=== PATIENT | female | born 1930 | race Caucasian/White ===

== ENCOUNTER → 2016-05-03 | Outpatient (CLI) | payer MEDICARE, OTHER ==
--- NOTE | 2016-05-03 09:22 | ST Modified Barium Swallow ---
Recommendation - Recommendations Recommendations: 1) DIET: Recommend mechanical soft cut meats and thin liquids- No straws. During swallows of thin by straw deep penetration to the level of the vocal cords. 2) Aspiration precautions-fully upright during meals, slow rate of intake. 3) STRATEGIES- alternate bites and sips to clear residuals of solids, dry swallow after sips of thin to clear residuals of thin liquids. 4) Pills whole or crushed as able in puree. 5) Recommend home health speech therapy for dysphagia. SUMMARY: Pt presents with a mild-moderate oral and pharyngeal phase dysphagia characterized by reduced bolus propulsion from oral cavity to pharyngeal phase of swallow, significant reduces epiglottic inversion , reduced laryngeal elevation, reduced hyolaryngeal approximation, reduced pharyngeal peristalsis resulting in residuals of thin and solids in valleculae and pyriforms. Pt observed to have deep penetration on thin liquids by straw. No penetration or aspiration on thin by spoon or small sips by cup. Aspiration observed x1 on sequential swallows of thin when pt attempting to swallow pill. Pt unable to swallow pill with thin liquids-pt able to swallow pill in puree. Cough observed on aspiration event. Residuals of solids observed to clear with liquid wash. Residuals of thin observed to clear with dry swallow. Osteophyte observed at approximately C4, possibly effecting pharyngeal peristalsis and epiglottic inversion. Medical Diagnoses - Medical Diagnoses Medical Diagnosis Description & ICD-10 Code(s): G20 Parkinson's disease, other dysphagia r13.19 Other Medical Diagnoses/Co-Morbidities: Parkinson's disease, spinal stenosis, bronchitis, COPD, reflux - ICD-10 Tx Diagnosis Coding (1) Dysphagia, oropharyngeal phase ICD-10 Code(s): R13.12 - DYSPHAGIA, OROPHARYNGEAL PHASE (2) Dysphagia, pharyngeal phase ICD-10 Code(s): R13.13 - DYSPHAGIA, PHARYNGEAL PHASE ST Modified Barium Swallow - General Date: 05/03/16 Referring Physician: Dr Aurora Paige Risks/Precautions: Falls - walker, Aspiration Date of Onset: 05/03/15 Reason for Referral: dysphagia, Parkinson's disease - History History obtained from: Patient, Family - daughter -: Medical - Pt reports food and liquids "go down the wrong way". Daughter reports 3 "choking events" in the past year as well as coughing during meals and with pills. Pt reports symptoms started approximately 1 year ago and endorses globus sensation in anterior neck region. Reports recent bronchitis about 1 month ago, states has chronic bronchitis. Pt has diagnosis of Parkinson' s disease approximately 1 year ago, daughter states they have an appointment with neurology next week for "second opinion". PMHx: Parkinson's disease, hip fracture, bronchitis, COPD, reflux, spinal stenosis. Pt also reports after her fall a couple months ago she has pain when opening her mouth and reports limited jaw ROM. Pt states hit right side of face during fall-however has left sided jaw pain. Daughter unsure if imaging of head taken after fall. Medications: prilosec, azilect, evista, cerefolin, biotin, omega 3, citrical, centrum silver, colace, advair, rescue inhaler. Allergies: simvastatin - Functional Status Prior Functional Status: INDEPENDENT: feeding Current Functional Limitations: feeding - Subjective Patient/caregiver goal(s): safe swallow, r/o aspiration Cognitive-Linguistic Function: WNL Speech Intelligibility: Mildly dysarthric - low volume Current Nutritional Means: PO Current PO diet: Regular Current symptoms: Coughing, c/o Globus sensation Pain: 0/5 - Objective Assessment: Upright, Left Lateral - Food Trials Used Food trials used: Thin liquids, Pureed, Soft solids The patient: Was Able to Self Feed - Oral-Motor Skills Dentition: Partial - upper and lower Velo-pharyngeal function: Unremarkable Laryngeal Function: Volitional Swallow, Weak Cough, weak voicing - Assessment Oral prep: Mildly Impaired - reduced bolus propulsion Labial closure: Adequate Leakage: None Mastication: Adequate Oral stage: Mildly Impaired, Impaired Bolus Propulsion - Pharyngeal Stage Initiation of Pharyngeal Stage Reflex: Normal Decreased laryngeal elevation: Yes - moderate Reduced Velopharyngeal Closure: no Reduced pressure generation: Yes - mild reduced tongue-based retraction: Yes - mod-significant Pre-swallow pooling in valleculae: None Pre-Swallow pooling in pyriforms: None Reduced Thyro-Hyoid approximation: Yes - moderate Reduced epiglottic excursion: Yes - significant Reduced pharyngeal peristalsis/contraction: Yes - moderate Post-swallow residulas vallecular: Moderate - mild-moderate on puree, mild on soft solids, mild on thin liquids Post-Swallow residuals in pyriforms: Mild - trace on thin and puree - Fall Risk Assessment Medications/Conditions that increase fall risks include: Antidepressants, sedatives, anti-arrhythmic, diuretic, benzodiazipenes, neuroleptics. BP regulation problems, cardiac problems, balance or gait deficits, neurological problems. Is patient considered at risk for falls: yes Fall Risk Actions Taken: Pt physician notified - Behavioral Observations During evaluation process patient: was pleasant, was cooperative, able to answer questions, provided medical history - Treatment / Educational Needs: Treatment/Education Needs: Treatment consisted of patient education on the role of the Speech Pathologist. Patient's plan of care and golas were communicated as well as scheduling and attendance policies. Recommendations for initial home program were shared. Patient demonstrated understanding and verbalized agreement. Initial home program recommendations: Pt and pt's daughter provided with verbal and written education on dysphagia, aspiration PNA, reflux precautions, mechanical soft solids guidlines, and recommendations from MBSS. - Impression/Summary Laryngeal Penetration: Yes, Deep, Silent, during swallow Consistency: Thin Tracheal Aspiration: yes - on thin x1-on sequential cups sips during pt attempting to swallow pill (pt unable to move pill posteriorly in oral cavity- pill not swallowed). Cough observed with aspiration event. Pill then provided in puree-pt able to swallow pill without difficulty., deep, cough, during swallow Patient presents with: Oral stage dysphagia, Pharyngeal stage dysph., Oral- Pharyngeal dysph. Risk of Aspiration: Moderate - mild-moderate - Recommendations NPO: no Solid diet recommendations: Mechanical Soft, Chopped Meat Liquid Diet Modification: Thin Strict aspiration precautions: Yes - straws Pt/Family education and followup with MD: Yes Dysphagia therapy with PRESSURE STEAMER TENDER: yes, dysphagia therapy - Home health Reflux Precautions: Taught to Patient, Taught to Family Recommended techniques: Fully Upright During Meal, Alternate Bites/Sips - and dry swallow after thin liquids Supervision: Distant Information, Precautions and Recommendations: Patient (Written), Patient (Verbal ), Family Member (Written), Family Member (Verbal) - Time Total Time: 35 - Plan of Care Strategies to optimize patient understanding include:: ongoing assessment of educational needs, implementation of educational strategies, and re-education. - - -: Thank you for the opportunity to work with this patient and his/her family. Should you have any questions about this patient's plan or progress, I can be reached at [phone]. Charge G Code? - - -: Yes ST F.L. Impairment Category - Rationale Based On Rationale Based On: Clin Find., Obj Measures - Swallowing Current G8996: CJ 20-39% Impaired Goal G8997: CJ 20-39% Impaired Discharge G8998: CJ 20-39% Impaired
== END ==
LOC: RAD 07:45
PROVIDERS: ATTEND Psychiatry & Neurology Neuromuscular Medicine
DX: G20 Parkinson's disease (principal); R13.19 Other dysphagia
CPT/HCPCS: 74230; 92611; G8996; G8997; G8998

== ENCOUNTER → 2016-07-09 | Outpatient (CLI) | payer MEDICARE, OTHER | LOC: RAD 11:03 | PROVIDERS: ATTEND Psychiatry & Neurology Neurology | DX: G20 Parkinson's disease (principal) | CPT/HCPCS: 70551 ==

== ENCOUNTER 2016-07-16 02:33 | Emergency (ER) | payer MEDICARE, OTHER ==
--- NOTE | 2016-07-16 02:55 | ER Document Report ---
ED General - General Chief Complaint: Fall Stated Complaint: FALL/BODY PAIN Time seen by provider: 02:45 Notes: Patient is an 85-year-old female that comes emergency department for chief complaint of fall, she states that she got out of bed and lost her balance, falling onto her left side on the floor, she denies hitting her head, denies dizziness, denies passing out. She takes a baby aspirin daily, denies blood thinners. She states that for the past month she has felt generally weaker than usual, she denies fever she denies change in eating/drinking. She denies focal numbness or weakness. Past medical history of Parkinson's, hyperlipidemia , hypertension, GERD. She lives at home with her daughter. TRAVEL OUTSIDE OF THE [place] IN LAST 30 DAYS: No - Related Data Allergies/Adverse Reactions: simvastatin Allergy (Verified 10/14/15 16:49) Past Medical History - General Information source: Patient, Emergency Med Personnel - Social History Smoking Status: Never Smoker Frequency of alcohol use: None Drug Abuse: None Lives with: Family Family History: Reviewed & Not Pertinent - Past Medical History Cardiac Medical History: Reports: Hx Hypertension Pulmonary Medical History: Reports: Hx COPD Endocrine Medical History: Reports: Hx Diabetes Mellitus Type 2 GI Medical History: Reports: Hx Gastroesophageal Reflux Disease Psychiatric Medical History: Denies: Hx Depression Infectious Medical History: Reports: Hx C-Diff Past Surgical History: Reports: Hx Appendectomy, Hx Cardiac Surgery, Hx Cholecystectomy Review of Systems - Review of Systems Constitutional: No symptoms reported EENT: No symptoms reported Cardiovascular: No symptoms reported Respiratory: No symptoms reported Gastrointestinal: No symptoms reported Genitourinary: No symptoms reported Female Genitourinary: No symptoms reported Musculoskeletal: See HPI Skin: No symptoms reported Hematologic/Lymphatic: No symptoms reported Neurological/Psychological: See HPI Physical Exam - Vital signs Vitals: Resp Pulse Ox 21 H 96 07/16/16 04:50 07/16/16 04:50 Interpretation: Normal - General General appearance: Appears well, Alert In distress: None - Alert, smiling, well-appearing - HEENT Head: Normocephalic - No evidence of head injury on examination, Atraumatic Eyes: Normal Conjunctiva: Normal Extraocular movements intact: Yes Eyelashes: Normal Pupils: PERRL Sinus: Normal Nasal: Normal Mouth/Lips: Normal Mucous membranes: Normal Pharynx: Normal Neck: Normal - Respiratory Respiratory status: No respiratory distress. No: Labored, Tachypnea Chest status: Tender - There is very slight tenderness over the mid left inferior ribs in the midaxillary line, no ecchymosis, swelling, abnormal coloration, or other abnormality noted Breath sounds: Normal. No: Decreased air movement Chest palpation: Normal - Cardiovascular Rhythm: Regular. No: Tachycardia Heart sounds: Normal auscultation, S1 appreciated, S2 appreciated Murmur: No - Abdominal Inspection: Normal Distension: No distension Bowel sounds: Normal Tenderness: Nontender. No: Tender Organomegaly: No organomegaly - Back Back: Normal, Nontender. No: Vertebra tenderness - Normal spinal exam throughout, normal upper and lower extremity range of motion, normal distal neurovascular exam, no saddle anesthesia - Extremities General upper extremity: Other - Very mild tenderness over the proximal left humeral head and general left shoulder area General lower extremity: Other - Very slight proximal left thigh tenderness, no specific tenderness in the hip joint - Neurological Neuro grossly intact: Yes Cognition: Normal Orientation: AAOx4 Girma Coma Scale Eye Opening: Spontaneous Girma Coma Scale Verbal: Oriented Girma Coma Scale Motor: Obeys Commands Girma Coma Scale Total: 15 Speech: Normal Motor strength normal: LUE, RUE, LLE, RLE Sensory: Normal - Psychological Associated symptoms: Normal affect, Normal mood - Skin Skin Temperature: Warm Skin Moisture: Dry Skin Color: Normal Course - Re-evaluation Re-evalutation: Patient is actually not complaining of any symptoms, she is here by herself, she is alert, she is conversational, is oriented, she is well-appearing. Patient has mild tenderness with palpation over the shoulder, left lower ribs, question will tenderness over the left thigh, no signs of injury including swelling or ecchymosis. Normal back exam, normal neurologic exam, no evidence of injury over the head, patient denies head injury. 07/16/16 CBC, chemistry, EKG, cardiac enzymes unremarkable. Imaging unremarkable with no fractures. On reexamination patient insisting she has no symptoms or complaints, she states she doesn't know why she came. Urinalysis shows nitrates , white blood cells, bacteria. Urine culture place. Patient given a dose of antibiotics. No leukocytosis, fever, tachycardia, hypotension. Patient requesting to leave. Patient is very alert and appears very reliable, I discussed all return precautions, patient states she has a close follow-up already scheduled with her primary care within the next few days, patient states she'll return for any concerning symptoms and that she is staying with her daughter. Patient calling daughter to be picked up. - Vital Signs Vital signs: Temp Pulse Resp BP Pulse Ox 22 H 174/66 H 95 07/16/16 05:02 07/16/16 05:02 07/16/16 05:02 - Laboratory Result Diagrams: 07/16/16 03:28 07/16/16 03:28 Laboratory results interpreted by me: 07/16/16 07/16/16 07/16/16 03:28 03:28 03:28 RDW 14.4 H Sodium 146.6 H Creatine Kinase 22 L Urine Nitrite POSITIVE H Ur Leukocyte Esterase MODERATE H Discharge - Discharge Clinical Impression: Weakness Fall Qualifiers: Encounter type: initial encounter Qualified Code(s): W19.XXXA - Unspecified fall, initial encounter Urinary tract infection Qualifiers: Urinary tract infection type: site unspecified Hematuria presence: without hematuria Qualified Code(s): N39.0 - Urinary tract infection, site not specified Condition: Stable Disposition: HOME, SELF-CARE Additional Instructions: Imaging shows no fractures, dislocations, or other new abnormalities. Workup is good except for urine showing urinary tract infection. You have been given an initial dose of antibiotics, please take the antibiotics as prescribed to completion, we have a urine culture growing in our laboratory. Follow up with your primary care provider this week. Return immediately for any concerning or worsening symptoms including fever, abdominal pain, vomiting, altered mental status, or any other concerning symptoms. Prescriptions: Cephalexin Monohydrate [Keflex 500 mg Capsule] 500 mg PO BID #14 capsule Referrals: ERIKA DUMONT MD [Primary Care Provider] - Follow up as needed
[2016-07-16 04:05] LABS: APPEARANCE,URINE SLIGHTLY-CLOUDY; BILIRUBIN,URINE NEGATIVE (NEGATIVE); GLUCOSE, URINE NEGATIVE (NEGATIVE); KETONES,URINE NEGATIVE (NEGATIVE); LEUKOCYTE ESTERASE,URINE MODERATE (NEGATIVE); NITRITE,URINE POSITIVE (NEGATIVE); PROTEIN,URINE NEGATIVE (NEGATIVE); URINE SPECIFIC GRAVITY 1.002; UROBILINOGEN,URINE NEGATIVE mg/dL (<2.0)
[2016-07-16 04:07] LABS: ABSOLUTE EOSINOPHILS # (AUTO) 0.2 10^3/uL (0.0-0.6); ABSOLUTE LYMPHOCYTES (AUTO) 2.1 10^3/uL (0.5-4.7); ABSOLUTE MONOCYTES (AUTO) 0.5 10^3/uL (0.1-1.4); ABSOLUTE NEUT (AUTO) 3.6 10^3/uL (1.7-8.2); BASOPHILS % (AUTO) 0.2 % (0-2); EOSINOPHILS % (AUTO) 2.8 % (0-6); HEMATOCRIT 39.6 % (36.0-47.0); HEMOGLOBIN 13.1 g/dL (12.0-15.5); HGB HCT DIFFERENCE -0.3; LYMPHOCYTES % (AUTO) 33.1 % (13-45); MEAN CORPUSCULAR HEMOGLOBIN 29.8 pg (27.0-33.4); MEAN CORPUSCULAR HGB CONC 33.1 g/dL (32.0-36.0); MEAN CORPUSCULAR VOLUME 90 fl (80-97); MONOCYTES % (AUTO) 7.8 % (3-13); RED BLOOD COUNT 4.39 10^6/uL (3.72-5.28); RED CELL DISTRIBUTION WIDTH 14.4 % (11.5-14.0); SEGMENTED NEUTROPHILS % (AUTO) 56.1 % (42-78); WHITE BLOOD COUNT 6.4 10^3/uL (4.0-10.5)
[2016-07-16 04:17] LABS: ALANINE AMINOTRANSFERASE 23 U/L (9-52); ALBUMIN 3.8 g/dL (3.5-5.0); ALKALINE PHOSPHATASE 45 U/L (38-126); ANION GAP 11 (5-19); ASPARTATE AMINO TRANSFERASE 19 U/L (14-36); BILIRUBIN,DIRECT 0.2 mg/dL (0.0-0.4); BILIRUBIN,TOTAL 0.5 mg/dL (0.2-1.3); BLOOD UREA NITROGEN 15 mg/dL (7-20); CALCIUM 9.5 mg/dL (8.4-10.2); CARBON DIOXIDE 30 mmol/L (22-30); CHLORIDE 106 mmol/L (98-107); CREATINE KINASE 22 U/L (30-135); CREATININE RESULT 0.64 mg/dL (0.52-1.25); GLUCOSE 90 mg/dL (75-110); POTASSIUM 4.2 mmol/L (3.6-5.0); SODIUM 146.6 mmol/L (137-145); TOTAL PROTEIN 6.4 g/dL (6.3-8.2)
[2016-07-16 04:29] LABS: CREATINE KINASE MB 0.94 ng/mL (<4.55)
[2016-07-16 04:32] LABS: TROPONIN I < 0.012 ng/mL
[2016-07-16] MEDS ORDERED: CEPHALEXIN 500 MG CAPSULE PO ONE (04:36)
[2016-07-16 05:55] VITALS: BP 159/57
--- NOTE | 2016-07-16 09:44 | EKG REPORT ---
SEVERITY:- ABNORMAL ECG - COMPLETE AV BLOCK, A-RATE 82 : Confirmed by: Willie Fortune 16-Jul-2016 09:44:12
== END 2016-07-16 05:20 | disposition home or self-care (01) ==
LOC: ER 02:33
DX: N39.0 Urinary tract infection, site not specified (principal); R53.1 Weakness; R52 Pain, unspecified; W19.XXXA Unspecified fall, initial encounter
CPT/HCPCS: 93005; 99284; 36415; 87086; 82553; 82550; 85025; 87088; 80053; 81001; 84484; 87186; 73502; 71101; 73030; 93010; A9270

== ENCOUNTER → 2016-09-08 | Outpatient (CLI) | payer MEDICARE, OTHER | LOC: OD 11:00 | PROVIDERS: ATTEND Internal Medicine Geriatric Medicine | DX: R60.0 Localized edema (principal) | CPT/HCPCS: 36415; 83880 ==

== ENCOUNTER → 2016-10-13 | Outpatient (CLI) | payer MEDICARE, OTHER ==
--- NOTE | 2016-10-14 12:16 | XCELERA REPORT ---
[address] [address] Lower Extremity Arterial Evaluation Name: JASON SWEET Age: 86 yrs Gender: Female : 1930 Patient Status: Outpatient Patient Location: Study Date: 10/13/2016 12:52 PM Procedure: A color flow and duplex scan of the lower extremity arteries was performed bilaterally with velocity and waveform anaylsis. Reason For Study: PVD Ordering Physician: ERIKA DUMONT Performed By: Lei Morris Measurements and Calculations Right Left FLEXIBLE NANNY PSV 184.6 144.9 cm/sec Prox PFA PSV -63.4 -189.7 cm/sec Prox SFA PSV -90.4 -80.3 cm/sec Mid SFA PSV -176.8 -34.7 cm/sec Dist SFA PSV -141.1 -140.6 cm/sec Dist Pop A PSV 99.8 79.1 cm/sec Prox CLIFF PSV -40.9 cm/sec Dist CLIFF PSV 95.8 80.5 cm/sec Dist SALES REPRESENTATIVE SALES MANAGER PSV 95.5 -97.1 cm/sec Lasha Pedis PSV 40.0 -21.2 cm/sec Right Side Arterial Evaluation Normal velocity and triphasic, mildly broadened waveforms noted in the Common Femoral artery. 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 Ankle Brachial index is 0.86. . Left Side Arterial Evaluation Normal velocity and biphasic, mildly broadened waveform noted in the Common Femoral artery. Triphasic in the Deep Femoral artery. 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 Occlusion, retrograde monophasic reconstitution in the Anterior Tibial artery. Occlusion at the Femoral artery. Ankle Brachial index is 0.85. Interpretation Summary Moderate hemodynamically significant lesions in the right lower extremity only, on duplex imaging, at rest. In spite of monophasic signals, well preserved velocities and MATTHEW distally. : ERIKA DUMONT > Chong Frye
== END ==
LOC: SP 12:40
PROVIDERS: ATTEND Internal Medicine Geriatric Medicine
DX: I73.9 Peripheral vascular disease, unspecified (principal)
CPT/HCPCS: 93925

== ENCOUNTER 2017-02-03 16:56 | Emergency (ER) | payer MEDICARE, OTHER ==
--- NOTE | 2017-02-03 18:11 | RADIOLOGY REPORT (SQ) ---
EXAM DESCRIPTION: HIP RIGHT AP/LATERAL COMPLETED DATE/TIME: 02/03/2017 6:03 pm REASON FOR STUDY: fall COMPARISON: 01/10/2016 NUMBER OF VIEWS: Two views. TECHNIQUE: AP pelvis and additional frog-leg view of the right hip. LIMITATIONS: None. FINDINGS: MINERALIZATION: Normal. RIGHT HIP: Intact hardware. No fracture or dislocation. No worrisome bone lesions. LEFT HIP: No fracture or dislocation. No worrisome bone lesions. PUBIS AND ISCHIUM: No fracture. PELVIS: No fracture. SACRUM: No fracture or dislocation. No worrisome bone lesions. LOWER LUMBAR SPINE: No fracture or dislocation. No worrisome bone lesions. No significant disc disea se. SOFT TISSUES: Stable appearance of partially calcified uterine fibroids. OTHER: No other significant finding. IMPRESSION: NO ACUTE OSSEOUS ABNORMALITY OR HARDWARE COMPLICATION IDENTIFIED. TECHNICAL DOCUMENTATION: JOB ID: [id number] [employer]- All Rights Reserved
--- NOTE | 2017-02-03 18:29 | ER Document Report ---
ED Fall - General Chief Complaint: Fall Injury Stated Complaint: RIGHT LEG PAIN Time Seen by Provider: 02/03/17 17:21 Mode of Arrival: Stretcher Information source: Patient TRAVEL OUTSIDE OF THE [place] IN LAST 30 DAYS: No - HPI Patient complains to provider of: Right hip pain Occurred: Just prior to arrival Where: Home Context: Lost balance Associated symptoms: None Location of injury/pain: Hip Quality of pain: Achy Severity: Mild Pain Level: 2 Notes: Patient is an 86-year-old female presenting to the emergency room via EMS for complaints of right hip pain after trip and fall at home, states she was going to the bathroom when she lost her balance causing her to fall on the right side , she denies a head injury or loss of consciousness, no numbness or tingling to extremities, no neck pain, her only complaint is hip pain which seems to have resolved since being in the emergency room and she is moving both lower extremities without difficulty, she does have a history of a hip fracture to the right side approximately 1 year ago and had surgery - Related data Allergies/Adverse Reactions: simvastatin Allergy (Verified 10/14/15 16:49) Home Medications: Current Home Medications Benzonatate 100 mg PO TID 02/03/17 [History] Carbidopa/Levodopa [Carbidopa-Levo 25-100 mg Odt] 1 each PO DAILY 02/03/17 [ History] Cyclosporine 0.05% Oph Emulsio [Restasis 0.05% Opthalmic Droperette] 1 drop BTH_ EYE BID 02/03/17 [History] Fluticasone Propionate [Flonase Nasal Supply 50 Mcg/Supply 16 gm] 2 sprays NASL DAILY 02/03/17 [History] Furosemide [Lasix] 20 mg PO DAILY 02/03/17 [History] Pramipexole Di-HCl [Pramipexole Dihydrochloride] 0.25 mg PO TID 02/03/17 [ History] Trimethobenzamide HCl [Tigan 300 Mg Capsule] 300 mg PO DAILY 02/03/17 [History] Past Medical History - General Information source: Patient - Social History Smoking Status: Never Smoker Chew tobacco use (# tins/day): No Frequency of alcohol use: None Drug Abuse: None Family History: Reviewed & Not Pertinent Patient has suicidal ideation: No Patient has homicidal ideation: No - Past Medical History Cardiac Medical History: Reports: Hx Hypertension Pulmonary Medical History: Reports: Hx COPD Endocrine Medical History: Reports: Hx Diabetes Mellitus Type 2 Renal/ Medical History: Denies: Hx Peritoneal Dialysis GI Medical History: Reports: Hx Gastroesophageal Reflux Disease Psychiatric Medical History: Denies: Hx Depression Infectious Medical History: Reports: Hx C-Diff Past Surgical History: Reports: Hx Appendectomy, Hx Cardiac Surgery, Hx Cholecystectomy, Hx Orthopedic Surgery - Right hip Review of Systems - Review of Systems Constitutional: No symptoms reported EENT: No symptoms reported Cardiovascular: No symptoms reported Respiratory: No symptoms reported Gastrointestinal: No symptoms reported Genitourinary: No symptoms reported Female Genitourinary: No symptoms reported Musculoskeletal: See HPI Skin: No symptoms reported Hematologic/Lymphatic: No symptoms reported Neurological/Psychological: No symptoms reported -: Yes All other systems reviewed and negative Physical Exam - Vital signs Vitals: Temp Pulse Resp BP Pulse Ox 98.1 F 80 16 173/68 H 97 02/03/17 17:06 02/03/17 17:06 02/03/17 17:06 02/03/17 17:06 02/03/17 17:06 Interpretation: Hypertensive - General General appearance: Appears well, Alert - HEENT Head: Normocephalic, Atraumatic Eyes: Normal Pupils: PERRL - Respiratory Respiratory status: No respiratory distress Chest status: Nontender Breath sounds: Normal Chest palpation: Normal - Cardiovascular Rhythm: Regular Heart sounds: Normal auscultation Murmur: No - Abdominal Inspection: Normal Distension: No distension Bowel sounds: Normal Tenderness: Nontender Organomegaly: No organomegaly - Back Back: Normal, Nontender - Extremities General upper extremity: Normal inspection, Nontender, Normal color, Normal ROM , Normal temperature General lower extremity: Normal inspection, Nontender, Normal color, Normal ROM , Normal temperature, Normal weight bearing. No: Brandi's sign - Neurological Neuro grossly intact: Yes Cognition: Normal Orientation: AAOx4 Girma Coma Scale Eye Opening: Spontaneous Driggs Coma Scale Verbal: Oriented Driggs Coma Scale Motor: Obeys Commands Driggs Coma Scale Total: 15 Speech: Normal Motor strength normal: LUE, RUE, LLE, RLE Sensory: Normal - Psychological Associated symptoms: Normal affect, Normal mood - Skin Skin Temperature: Warm Skin Moisture: Dry Skin Color: Normal Course - Re-evaluation Re-evalutation: 02/03/17 18:27 Imaging findings unremarkable and were discussed with patient at bedside, she was able to ambulate without difficulty, advised to follow-up with her primary care provider or return if symptoms worsen, patient acknowledges understanding and agreement with this plan - Vital Signs Vital signs: Temp Pulse Resp BP Pulse Ox 98.1 F 80 16 173/68 H 97 02/03/17 17:06 02/03/17 17:06 02/03/17 17:06 02/03/17 17:06 02/03/17 17:06 - Diagnostic Test Radiology reviewed: Image reviewed, Reports reviewed Discharge - Discharge Clinical Impression: Contusion of right hip Qualifiers: Encounter type: initial encounter Qualified Code(s): S70.01XA - Contusion of right hip, initial encounter Condition: Stable Disposition: HOME, SELF-CARE Instructions: Contusion ([facility]), Ice & Elevation ([facility]) Additional Instructions: Follow up with your primary care provider in one to 2 days. Return to the emergency room immediately if symptoms worsen or any additional concerns. Referrals: ERIKA DUMONT MD [Primary Care Provider] - Follow up as needed
[2017-02-03 19:17] VITALS: BP 146/72
== END 2017-02-03 19:17 | disposition home or self-care (01) ==
LOC: ER 16:56
DX: S70.01XA Contusion of right hip, initial encounter (principal); M25.551 Pain in right hip; W01.0XXA Fall on same level from slipping, tripping and stumbling without subsequent striking against object, initial encounter; Y92.009 Unspecified place in unspecified non-institutional (private) residence as the place of occurrence of the external cause; Z79.899 Other long term (current) drug therapy
CPT/HCPCS: 99283

== ENCOUNTER 2017-03-14 10:59 | Day surgery (SDC) | payer MEDICARE, OTHER ==
[2017-03-08 11:55] LABS: HEMATOCRIT 37.7 % (36.0-47.0); HEMOGLOBIN 12.8 g/dL (12.0-15.5); MEAN CORPUSCULAR HEMOGLOBIN 30.8 pg (27.0-33.4); MEAN CORPUSCULAR VOLUME 91 fl (80-97); PLATELET COUNT 204 10^3/uL (150-450); RED BLOOD COUNT 4.16 10^6/uL (3.72-5.28); RED CELL DISTRIBUTION WIDTH 13.9 % (11.5-14.0); WHITE BLOOD COUNT 7.8 10^3/uL (4.0-10.5)
[2017-03-08 12:00] LABS: INTERNATIONAL RATION (INR) 0.83
[2017-03-08 12:01] LABS: PARTIAL THROMBOPLASTIN TIME 27.9 SEC (23.5-35.8)
[2017-03-08 12:12] LABS: ANION GAP 10 (5-19); BLOOD UREA NITROGEN 22 mg/dL (7-20); CARBON DIOXIDE 30 mmol/L (22-30); CHLORIDE 104 mmol/L (98-107); GLUCOSE 85 mg/dL (75-110); POTASSIUM 4.7 mmol/L (3.6-5.0); SODIUM 143.9 mmol/L (137-145)
--- NOTE | 2017-03-08 12:38 | RADIOLOGY REPORT (SQ) ---
EXAM DESCRIPTION: CHEST PA/LATERAL COMPLETED DATE/TIME: 03/08/2017 12:05 pm REASON FOR STUDY: PRE OP COMPARISON: 01/10/2016 EXAM PARAMETERS: NUMBER OF VIEWS: two views TECHNIQUE: Digital Frontal and Lateral radiographic views of the chest acquired. RADIATION DOSE: NA LIMITATIONS: none FINDINGS: LUNGS AND PLEURA: No opacities, masses or pneumothorax. No pleural effusion. MEDIASTINUM AND HILAR STRUCTURES: No masses or contour abnormalities. HEART AND VASCULAR STRUCTURES: Heart normal size. No evidence for failure. BONES: No acute findings. HARDWARE: None in the chest. OTHER: No other significant finding. IMPRESSION: NO SIGNIFICANT RADIOGRAPHIC FINDING IN THE CHEST. TECHNICAL DOCUMENTATION: JOB ID: [id number] [employer]- All Rights Reserved
--- NOTE | 2017-03-08 13:08 | EKG REPORT ---
SEVERITY:- BORDERLINE ECG - SINUS RHYTHM BORDERLINE R WAVE PROGRESSION, ANTERIOR LEADS : Confirmed by: Jerson Blackwood MD 08-Mar-2017 13:07:39
[2017-03-08 15:16] LABS: APPEARANCE,URINE SLIGHTLY-CLOUDY; BILIRUBIN,URINE NEGATIVE (NEGATIVE); COLOR,URINE YELLOW; GLUCOSE, URINE NEGATIVE (NEGATIVE); KETONES,URINE TRACE mg/dL (NEGATIVE); LEUKOCYTE ESTERASE,URINE TRACE (NEGATIVE); NITRITE,URINE NEGATIVE (NEGATIVE); PROTEIN,URINE NEGATIVE (NEGATIVE); URINE SPECIFIC GRAVITY 1.019; UROBILINOGEN,URINE NEGATIVE mg/dL (<2.0)
[~2017-03-14 10:59] MED LIST: CEFAZOLIN 1 GM/D5W RTU 1 GM/50 ML RTUPB IV PRN; LACTATED RINGERS 1000 ML IV PRN; LIDOCAINE 0.5% INJ-PF (5 MG/ML) 50 ML SDV SUBCUT PRN
[2017-03-14] MEDS ORDERED: FENTANYL CITRATE INJ/PF 100 MCG/2 ML AMPUL ONE (11:30)
[2017-03-14] MEDS ORDERED: MIDAZOLAM 2 MG/2 ML INJ ONE (11:31)
[2017-03-14] MEDS ORDERED: PROPOFOL INJ 200 MG/20 ML VIAL IV ONE (11:31)
[2017-03-14] MEDS ORDERED: ONDANSETRON HCL INJ/PF 4 MG/2 ML SDV ONE (11:32)
[2017-03-14] MEDS ORDERED: LIDOCAINE 1% INJ-PF (10 MG/ML) 30 ML SDV ONE (11:34)
[2017-03-14] MEDS ORDERED: SODIUM BICARBONATE 8.4% INJ 50 MEQ/50 ML DISP.SYRIN ONE (11:34)
[2017-03-14 11:53] LABS: APPEARANCE,URINE SLIGHTLY-CLOUDY; BILIRUBIN,URINE NEGATIVE (NEGATIVE); COLOR,URINE YELLOW; GLUCOSE, URINE NEGATIVE (NEGATIVE); KETONES,URINE NEGATIVE (NEGATIVE); LEUKOCYTE ESTERASE,URINE MODERATE (NEGATIVE); NITRITE,URINE NEGATIVE (NEGATIVE); PROTEIN,URINE NEGATIVE (NEGATIVE); URINE SPECIFIC GRAVITY 1.015; UROBILINOGEN,URINE NEGATIVE mg/dL (<2.0)
[2017-03-14] MEDS ORDERED: FENTANYL CITRATE INJ/PF 100 MCG/2 ML AMPUL IV PRN ×2 (13:30)
[2017-03-14] MEDS ORDERED: DIPHENHYDRAMINE HCL 50 MG/ML VIAL IV PRN (13:30)
[2017-03-14] MEDS ORDERED: OXYCODONE-ACETAMINOPHEN 5-325 MG TABLET PO PRN (14:04)
--- NOTE | 2017-03-14 14:08 | OPERATIVE REPORT E ---
Operative Report NAME: JASON SWEET : 1930 AGE: 86Y DATE OF SURGERY: 03/14/2017 ROOM: PREOPERATIVE DIAGNOSIS: L2 compression fracture. POSTOPERATIVE DIAGNOSIS: L2 compression fracture. PROCEDURE: Balloon kyphoplasty at L2. SURGEON: STEPHANIE MCNULTY M.D. REGISTERED NURSE PRACTITIONER: None. ANESTHESIA: MAC. COMPLICATIONS: None. PROCEDURE IN DETAIL: After obtaining informed consent and advising the patient of the risks and benefits, including serious neurological injury, bleeding, infection, paralysis, allergic reaction, , and failure to adequately treat pain, she was taken to the operating suite. She was placed comfortably in the prone position as determined by Anesthesia. She was prepped and draped. C-arm was brought in for lateral and AP visualization and draped appropriately. Beginning at the L2 level using a right peripedicular approach, a suitable skin entry site was identified and anesthetized with 1% lidocaine with bicarb. A small incision was made. Express trocar was then advanced under serial fluoroscopic views in AP and lateral positions entering in the peripedicular approach and medializing after passing into the vertebral body and was medial to the medial pedicular wall. Drill was then placed and removed followed by the balloon showing inflation of coverage from pedicle to pedicle crossing the midline. This balloon was then allowed to fully insufflate with appropriate coverage. Once the balloon was adequately deflated, the cement mixture was then mixed, and using the filler tubes beginning at the L2 level on the right, a total of 2.8 mL of mixture was placed at the L2 level with appropriate midline coverage and superior endplate coverage. It was decided not to proceed on the left with only coverage on the right given crossing in the midline and appropriate spread. After the filler tube was removed, Stylettes were placed into the trocar. The cement was allowed to harden prior to removing the trocar. The region was then cleansed. Sterile dressing was placed and the patient was taken to the PACU for further postoperative care and monitoring. DICTATING PHYSICIAN: STEPHANIE MCNULTY M.D. [id number] PHY#: [id number] ID: [id number] JOB#: [id number] ACCT: [id number] cc:STEPHANIE MCNULTY M.D. > MTDD
--- NOTE | 2017-03-14 15:09 | RADIOLOGY REPORT (SQ) ---
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 FLUOROSCOPY TIME: 1.3 minutes. 4 images saved to PACS. TECHNIQUE: Intra-operative images acquired during surgical procedure to evaluate progress. NUMBER OF IMAGES: 4 images. LIMITATIONS: None. FINDINGS: Images acquired during kyphoplasty. IMPRESSION: IMAGE(S) OBTAINED DURING PROCEDURE. COMMENT: Quality ID 145: Final reports for procedures using fluoroscopy that document radiation exp osure indices, or exposure time and number of fluorographic images (if radiation exposure indices are not available) Please consult full operative report of the attending physician for description of the procedure. TECHNICAL DOCUMENTATION: JOB ID: [id number] [employer]- All Rights Reserved
--- NOTE | 2017-03-14 15:09 | RADIOLOGY REPORT (SQ) ---
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 FLUOROSCOPY TIME: 1.3 minutes. 4 images saved to PACS. TECHNIQUE: Intra-operative images acquired during surgical procedure to evaluate progress. NUMBER OF IMAGES: 4 images. LIMITATIONS: None. FINDINGS: Images acquired during kyphoplasty. IMPRESSION: IMAGE(S) OBTAINED DURING PROCEDURE. COMMENT: Quality ID 145: Final reports for procedures using fluoroscopy that document radiation exp osure indices, or exposure time and number of fluorographic images (if radiation exposure indices are not available) Please consult full operative report of the attending physician for description of the procedure. TECHNICAL DOCUMENTATION: JOB ID: [id number] [employer]- All Rights Reserved
[2017-03-14 16:31] VITALS: BP 117/62
== END 2017-03-14 15:45 | disposition home or self-care (01) ==
LOC: OROUT 10:59
PROVIDERS: ATTEND Student in an Organized Health Care Education/Training Program
PROC: 0QU03JZ Supplement Lumbar Vertebra with Synthetic Substitute, Percutaneous Approach (ICD-10-PCS; 2017-03-14)
PROC: 0QS03ZZ Reposition Lumbar Vertebra, Percutaneous Approach (ICD-10-PCS; principal; 2017-03-14 13:00)
DX: S32.020S Wedge compression fracture of second lumbar vertebra, sequela (principal); X58.XXXS Exposure to other specified factors, sequela; M47.816 Spondylosis without myelopathy or radiculopathy, lumbar region; M41.9 Scoliosis, unspecified; M81.0 Age-related osteoporosis without current pathological fracture; M51.36 Other intervertebral disc degeneration, lumbar region; M54.17 Radiculopathy, lumbosacral region; M48.07 Spinal stenosis, lumbosacral region; M70.62 Trochanteric bursitis, left hip; I10 Essential (primary) hypertension; K21.9 Gastro-esophageal reflux disease without esophagitis; E11.9 Type 2 diabetes mellitus without complications; G20 Parkinson's disease; J44.9 Chronic obstructive pulmonary disease, unspecified; R32 Unspecified urinary incontinence; Z79.01 Long term (current) use of anticoagulants; Z79.899 Other long term (current) drug therapy; Z79.51 Long term (current) use of inhaled steroids; Z79.82 Long term (current) use of aspirin; Z87.891 Personal history of nicotine dependence; Z88.8 Allergy status to other drugs, medicaments and biological substances
CPT/HCPCS: 93005; 36415; 82962; 85027; 85610; 85730; 80048; 81001 ×2; 71020; 72100; 93010; 22514; Q9966; J2250; J0690; J3010; J3490; J2405; J2704; 1936

== ENCOUNTER 2017-04-04 05:51 | Day surgery (SDC) | payer MEDICARE, OTHER ==
[2017-03-30 11:38] LABS: EOSINOPHILS % (AUTO) 0.8 % (0-6); HEMATOCRIT 37.3 % (36.0-47.0); HEMOGLOBIN 12.4 g/dL (12.0-15.5); MEAN CORPUSCULAR HGB CONC 33.3 g/dL (32.0-36.0); MEAN CORPUSCULAR VOLUME 90 fl (80-97); PLATELET COUNT 228 10^3/uL (150-450); RED BLOOD COUNT 4.13 10^6/uL (3.72-5.28); RED CELL DISTRIBUTION WIDTH 13.5 % (11.5-14.0); WHITE BLOOD COUNT 8.3 10^3/uL (4.0-10.5)
[2017-03-30 11:39] LABS: ABSOLUTE EOSINOPHILS # (AUTO) 0.1 10^3/uL (0.0-0.6); ABSOLUTE LYMPHOCYTES (AUTO) 1.8 10^3/uL (0.5-4.7); ABSOLUTE MONOCYTES (AUTO) 0.6 10^3/uL (0.1-1.4); ABSOLUTE NEUT (AUTO) 5.8 10^3/uL (1.7-8.2); BASOPHILS % (AUTO) 0.2 % (0-2); TOTAL CELLS COUNTED % (AUTO) 100 %
[2017-03-30 11:41] LABS: PROTHROMBIN TIME 12.8 SEC (11.4-15.4)
[2017-03-30 12:04] LABS: ANION GAP 13 (5-19); BLOOD UREA NITROGEN 19 mg/dL (7-20); CALCIUM 10.1 mg/dL (8.4-10.2); CARBON DIOXIDE 27 mmol/L (22-30); CHLORIDE 104 mmol/L (98-107); GLUCOSE 74 mg/dL (75-110); POTASSIUM 4.2 mmol/L (3.6-5.0); SODIUM 143.7 mmol/L (137-145)
[2017-04-04] MEDS ORDERED: LIDOCAINE 2% INJ-PF (20 MG/ML) 10 ML AMPUL ONE (07:26)
[2017-04-04] MEDS ORDERED: FENTANYL CITRATE INJ/PF 100 MCG/2 ML AMPUL ONE (07:26)
[2017-04-04] MEDS ORDERED: DEXMEDETOMIDINE INJ 80 MCG/20 ML VIAL IV ONE (07:27)
[2017-04-04] MEDS ORDERED: PROPOFOL INJ 200 MG/20 ML VIAL IV ONE (07:27)
[2017-04-04] MEDS ORDERED: ACETAMINOPHEN 100 ML IV ONE (07:27)
[2017-04-04] MEDS ORDERED: MIDAZOLAM 2 MG/2 ML INJ ONE (07:27)
[2017-04-04] MEDS ORDERED: ONDANSETRON HCL INJ/PF 4 MG/2 ML SDV ONE (07:27)
[2017-04-04] MEDS ORDERED: LIDOCAINE 1% INJ-PF (10 MG/ML) 30 ML SDV ONE (07:35)
[2017-04-04] MEDS ORDERED: TRIAMCINOLONE ACETONIDE INJ 40 MG/1 ML VIAL ONE (07:35)
[2017-04-04] MEDS ORDERED: BUPIVACAINE HCL 0.25% /EPINEPHRINE INJ/PF 30 ML SDV ONE (07:36)
[2017-04-04] MEDS ORDERED: ALBUTEROL SULFATE 0.083% NEB 2.5 MG/3 ML AMPUL NEB ONE (07:42)
[2017-04-04] MEDS ORDERED: SODIUM BICARBONATE 8.4% INJ 50 MEQ/50 ML DISP.SYRIN ONE (07:45)
[2017-04-04] MEDS ORDERED: MEPERIDINE HCL/PF INJ 25 MG/1 ML DISP.SYRIN IV PRN (08:29)
[2017-04-04] MEDS ORDERED: DIPHENHYDRAMINE HCL 50 MG/ML VIAL IV PRN (08:29)
[2017-04-04] MEDS ORDERED: OXYCODONE-ACETAMINOPHEN 5-325 MG TABLET PO PRN ×3 (08:29→10:04)
[2017-04-04] MEDS ORDERED: FENTANYL CITRATE INJ/PF 100 MCG/2 ML AMPUL IV PRN ×3 (08:29)
[2017-04-04] MEDS ORDERED: MORPHINE SULFATE 10 MG/ML INJ IV PRN (08:29)
[2017-04-04] MEDS ORDERED: ONDANSETRON HCL INJ/PF 4 MG/2 ML SDV IV PRN (08:29)
[2017-04-04] MEDS ORDERED: PROMETHAZINE HCL INJ 25 MG/1 ML VIAL IV PRN ×2 (08:29)
--- NOTE | 2017-04-04 11:54 | OPERATIVE REPORT E ---
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 PROCEDURE: MILD. SURGEON: SANGITA MRAT M.D. COMPLIANCE SPEC: STEPHANIE MCNULTY M.D. ANESTHESIA: MAC. COMPLICATIONS: None. PROCEDURE IN DETAIL: After obtaining informed consent and advising the patient of the risks and benefits, including serious neurological injury, bleeding, infection, paralysis, allergic reaction, , and failure to adequately treat pain, she was taken to the operating room suite. She was placed comfortably in the prone position as determined by Anesthesia. She was prepped and draped. C-arm was brought in for lateral and AP visualization and oblique visualizations and draped appropriately. Beginning at the L4-5 level, using a midline approach, a Tuohy needle was used to diane attempted entry in the midline at L4-L5 under fluoroscopic guidance, first 1% lidocaine with bicarb, skin wheal was made with deeper anesthesia. Tuohy was attempted, but could not be placed in the midline or paramedian. A second attempt was made at L3-4 and L5-S1 with appropriate entry until loss of resistance at 7 cm at the L3-L4 level and 8.5 cm at the L5-S1 level using midline approach with a Tuohy needle 17 gauge with loss of resistance to saline. A T-tube with contrast was connected at each level and injected with appropriate epidurogram showing stenosis at L4-5. Starting on the left, appropriate skin entry site for trocar *------* was placed on the left with numbing medicine followed by 1% lidocaine and anesthetized followed by scalpel to allow easier entry of the trocar. The trocar was then into the incision. A spinal needle was injected for deeper anesthesia. The express trocar was then placed inside and under serial fluoroscopic guidance placed medial to the pedicle wall and just lateral to the spinous process with appropriate advancement to the L4-5 space using the tissue sculptor and rongeur. Multiple passes were made to create space with bony and ligament fragments removed. Contrast was injected at the L5-S1 level to show improvement of flow of L4-5 epidural space. Attention was then taken exactly the same on the right side with appropriate advancement of the trocar to the L4-5 space, again medial to the pedicle and lateral to the spinous process. Again, using the rongeur and tissue sculptor, the space on the right was sculpted with multiple bone and ligament fragments removed with improvement in epidural spread with contrast injection. At the end, the trocars were removed, bandages were placed. The epidurals were also removed, but before removal, mixture of 80 mg of Depo Medrol was injected at the L5-S1 level. The needles were then removed and bandages were placed. After the region was cleaned, sterile dressings were placed and the patient was taken to the PACU for further postoperative care and monitoring. DICTATING PHYSICIAN: STEPAHNIE MCNULTY M.D. [id number] PHY#: [id number] ID: [id number] JOB#: [id number] ACCT: [id number] cc:STEPHANIE MCNULTY M.D. >
[2017-04-04] MEDS ORDERED: ESMOLOL HCL INJ/PF 100 MG/10 ML SDV IV ONE (12:15)
[2017-04-04] MEDS ORDERED: METOPROLOL TARTRATE PF/INJ 5 MG/5 ML SDV IV ONE (12:15)
[2017-04-04 12:24] VITALS: BP 126/58
--- NOTE | 2017-04-04 15:26 | RADIOLOGY REPORT (SQ) ---
EXAM DESCRIPTION: NO CHG FLUORO; L SPINE 2 VIEWS COMPLETED DATE/TIME: 04/04/2017 1:18 pm REASON FOR STUDY: MINIMALLY INVASIVE LUMBAR DECOMPRESSION ASST W/ FLUORO IN OR M48.07 SPINAL STENOS IS, LUMBOSACRAL REGION Z00.6 ENCNTR FOR EXAM FOR NRML CMPRSN AND CTRL IN [facility] M48.062 SPINAL STENOSIS, LUMBAR REGION WITH NEUROGENIC TYRONE COMPARISON: None. FLUOROSCOPY TIME: 11 minutes Multiple fluoroscopic images saved to PACS. TECHNIQUE: Intra-operative images acquired during surgical procedure to evaluate progress. NUMBER OF IMAGES: Multiple spot fluoroscopic LIMITATIONS: None. FINDINGS: Slight images from needle placement in the lower lumbar spine. There is contrast outlinin g the epidural space. IMPRESSION: IMAGE(S) OBTAINED DURING PROCEDURE. COMMENT: Quality ID 145: Final reports for procedures using fluoroscopy that document radiation exp osure indices, or exposure time and number of fluorographic images (if radiation exposure indices are not available) Please consult full operative report of the attending physician for description of the procedure. TECHNICAL DOCUMENTATION: JOB ID: [id number] [employer]- All Rights Reserved
--- NOTE | 2017-04-04 15:26 | RADIOLOGY REPORT (SQ) ---
EXAM DESCRIPTION: NO CHG FLUORO; L SPINE 2 VIEWS COMPLETED DATE/TIME: 04/04/2017 1:18 pm REASON FOR STUDY: MINIMALLY INVASIVE LUMBAR DECOMPRESSION ASST W/ FLUORO IN OR M48.07 SPINAL STENOS IS, LUMBOSACRAL REGION Z00.6 ENCNTR FOR EXAM FOR NRML CMPRSN AND CTRL IN CLNCL [place] M48.062 SPINAL STENOSIS, LUMBAR REGION WITH NEUROGENIC TYRONE COMPARISON: None. FLUOROSCOPY TIME: 11 minutes Multiple fluoroscopic images saved to PACS. TECHNIQUE: Intra-operative images acquired during surgical procedure to evaluate progress. NUMBER OF IMAGES: Multiple spot fluoroscopic LIMITATIONS: None. FINDINGS: Slight images from needle placement in the lower lumbar spine. There is contrast outlinin g the epidural space. IMPRESSION: IMAGE(S) OBTAINED DURING PROCEDURE. COMMENT: Quality ID 145: Final reports for procedures using fluoroscopy that document radiation exp osure indices, or exposure time and number of fluorographic images (if radiation exposure indices are not available) Please consult full operative report of the attending physician for description of the procedure. TECHNICAL DOCUMENTATION: JOB ID: [id number] [employer]- All Rights Reserved
== END 2017-04-04 12:05 | disposition home or self-care (01) ==
LOC: OROUT 05:51
PROVIDERS: ATTEND Pain Medicine Interventional Pain Medicine
PROC: 01NB3ZZ Release Lumbar Nerve, Percutaneous Approach (ICD-10-PCS; principal; 2017-04-04 08:00)
DX: M48.07 Spinal stenosis, lumbosacral region (principal); Z00.6 Encounter for examination for normal comparison and control in clinical research program; M48.062 Spinal stenosis, lumbar region with neurogenic claudication; S32.020S Wedge compression fracture of second lumbar vertebra, sequela; X58.XXXS Exposure to other specified factors, sequela; M51.36 Other intervertebral disc degeneration, lumbar region; M54.17 Radiculopathy, lumbosacral region; M47.816 Spondylosis without myelopathy or radiculopathy, lumbar region; G20 Parkinson's disease; E11.9 Type 2 diabetes mellitus without complications; J44.9 Chronic obstructive pulmonary disease, unspecified; Z79.51 Long term (current) use of inhaled steroids; Z88.8 Allergy status to other drugs, medicaments and biological substances; Z79.82 Long term (current) use of aspirin
CPT/HCPCS: 0275T; 36415; 82962; 85025; 85610; 85730; 80048; 72100; 94640; Q9966; J2250; J3490 ×6; J0690; J3010; J2405; J2704; A9270; J0131; 630

== ENCOUNTER 2017-04-22 08:48 | Emergency (ER) | payer MEDICARE, OTHER ==
--- NOTE | 2017-04-22 09:52 | ER Document Report ---
ED General - General Chief Complaint: General Weakness Stated Complaint: WEAKNESS Time Seen by Provider: 04/22/17 08:56 Mode of Arrival: Medic Information source: Patient, Relative, Outside Facility Records Notes: 86-year-old female presents with complaints of generalized weakness. Patient notes that she was having some shortness of breath initially but had it has since resolved, she does have a history of COPD. Patient also does note that recently she has been urinating multiple times and has had a foul smell to it. Patient believes she has a urinary tract infection TRAVEL OUTSIDE OF THE [place] IN LAST 30 DAYS: No - HPI Onset: Other Onset/Duration: Persistent Quality of pain: No pain Severity: Mild Pain Level: Denies Associated symptoms: Nonproductive cough, Shortness of breath, Sweating Exacerbated by: Denies Relieved by: Denies Similar symptoms previously: No Recently seen / treated by doctor: No - Related Data Allergies/Adverse Reactions: simvastatin Adverse Reaction (Verified 04/04/17 06:42) Past Medical History - Social History Smoking Status: Never Smoker Cigarette use (# per day): No Chew tobacco use (# tins/day): No Smoking Education Provided: No Family History: Reviewed & Not Pertinent - Past Medical History Cardiac Medical History: Reports: Hx Hypertension - H/O, NO MEDS CURRENTLY Denies: Hx Coronary Artery Disease, Hx Heart Attack Pulmonary Medical History: Reports: Hx Asthma, Hx Bronchitis, Hx COPD - USES INHALERS Denies: Hx Pneumonia Neurological Medical History: Denies: Hx Cerebrovascular Accident, Hx Seizures Endocrine Medical History: Reports: Hx Diabetes Mellitus Type 2 Renal/ Medical History: Denies: Hx Peritoneal Dialysis GI Medical History: Reports: Hx Gastroesophageal Reflux Disease Musculoskeltal Medical History: Reports Hx Arthritis - GENERALIZED Psychiatric Medical History: Denies: Hx Depression Infectious Medical History: Reports: Hx C-Diff Past Surgical History: Reports: Hx Appendectomy, Hx Cardiac Surgery, Hx Cholecystectomy, Hx Orthopedic Surgery - Right hip - Immunizations Hx Diphtheria, Pertussis, Tetanus Vaccination: Yes Hx Pneumococcal Vaccination: 03/20/15 Review of Systems - Review of Systems Notes: REVIEW OF SYSTEMS: CONSTITUTIONAL : Denies fever, chills, or sweats. Denies recent illness. EENT: Denies eye, ear, throat, or mouth pain or symptoms. Denies nasal or sinus congestion or discharge. Denies throat, tongue, or mouth swelling or difficulty swallowing. CARDIOVASCULAR: Denies chest pain. Denies palpitations or racing or irregular heart beat. Denies ankle edema. RESPIRATORY: Admits to shortness of breath that has since resolved GASTROINTESTINAL: Denies abdominal pain or distention. Denies nausea, vomiting , or diarrhea. Denies blood in vomitus, stools, or per rectum. Denies black, tarry stools. Denies constipation. GENITOURINARY: D admits foul-smelling urine urinary frequency FEMALE GENITOURINARY: Denies vaginal bleeding, heavy or abnormal periods, irregular periods. Denies vaginal discharge or odor. MUSCULOSKELETAL: Denies back or neck pain or stiffness. Denies joint pain or swelling. SKIN: Denies rash, lesions or sores. HEMATOLOGIC : Denies easy bruising or bleeding. LYMPHATIC: Denies swollen, enlarged glands. NEUROLOGICAL: Denies confusion or altered mental status. Denies passing out or loss of consciousness. Denies dizziness or lightheadedness. Denies headache. Denies weakness or paralysis or loss of use of either side. Denies problems with gait or speech. Denies sensory loss, numbness, or tingling. Denies seizures. PSYCHIATRIC: Denies anxiety or stress. Denies depression, suicidal ideation, or homicidal ideation. ALL OTHER SYSTEMS REVIEWED AND NEGATIVE. PHYSICAL EXAMINATION: GENERAL: Elderly female no acute distress HEAD: Atraumatic, normocephalic. EYES: Pupils equal round and reactive to light, extraocular movements intact, conjunctiva are normal. ENT: Nares patent, oropharynx clear without exudates. Moist mucous membranes. NECK: Normal range of motion, supple without lymphadenopathy LUNGS: Breath sounds clear to auscultation bilaterally and equal. No wheezes rales or rhonchi. HEART: Regular rate and rhythm without murmurs ABDOMEN: Soft, nontender, nondistended abdomen. No guarding, no rebound. No masses appreciated. Female : deferred Musculoskeletal: Bilateral lower extremity edema chronic NEUROLOGICAL: Cranial nerves grossly intact. Normal speech, normal gait. Normal sensory, motor exams PSYCH: Normal mood, normal affect. SKIN: Warm, Dry, normal turgor, no rashes or lesions noted. Dictation was performed using [employer] voice recognition software Physical Exam - Vital signs Vitals: Pulse Ox 89 L 04/22/17 09:19 Course - Re-evaluation Re-evalutation: 04/22/17 09:54 Patient is in no respiratory distress is satting 93% on room air while speaking in complete sentences, patient does have a probable urinary tract infection lab work is pending 04/22/17 15:17 Patient's urinalysis noted no significant abnormality, I had a very long discussion with daughter and this weakness appears to be intermittent as well as some intermittent cramping in one leg or the other at times. There is no signs of DVTs, CPK is not elevated, potassium was normal, patient overall looks well, I explained very strict return precautions and instructed to return immediately if there are any other concerns After performing a Medical Screening Examination, I estimate there is LOW risk for ACUTE CORONARY SYNDROME, PULMONARY EMBOLI, RESPIRATORY FAILURE, SEPSIS OR MENINGITIS, thus I consider the discharge disposition reasonable. I have reevaluated this patient multiple times and no significant life threatening changes are noted. The patient and I have discussed the diagnosis and risks, and we agree with discharging home with close follow-up. We also discussed returning to the Emergency Department immediately if new or worsening symptoms occur. We have discussed the symptoms which are most concerning (e.g., changing or worsening pain, trouble swallowing or breathing, neck stiffness, fever) that necessitate immediate return. 04/22/17 15:20 - Vital Signs Vital signs: Temp Pulse Resp BP Pulse Ox 21 H 120/55 L 90 L 04/22/17 12:00 04/22/17 09:28 04/22/17 12:00 - Laboratory Result Diagrams: 04/22/17 09:02 04/22/17 09:02 Laboratory results interpreted by me: 04/22/17 04/22/17 04/22/17 09:02 09:02 09:35 Seg Neutrophils % 78.8 H Lymphocytes % 11.0 L Absolute Lymphocytes 0.4 L Sodium 136.7 L BUN 21 H AST 146 H ALT 88 H Urine Ketones TRACE H Urine Ascorbic Acid 40 H - Diagnostic Test Radiology reviewed: Image reviewed, Reports reviewed Discharge - Discharge Clinical Impression: Weakness Condition: Stable Disposition: HOME, SELF-CARE Instructions: Weakness ([facility]) Referrals: ERIKA DUMONT MD [Primary Care Provider] - Follow up tomorrow
[2017-04-22 10:24] LABS: APPEARANCE,URINE SLIGHTLY-CLOUDY; BILIRUBIN,URINE NEGATIVE (NEGATIVE); COLOR,URINE YELLOW; GLUCOSE, URINE NEGATIVE (NEGATIVE); KETONES,URINE TRACE mg/dL (NEGATIVE); LEUKOCYTE ESTERASE,URINE NEGATIVE (NEGATIVE); NITRITE,URINE NEGATIVE (NEGATIVE); PROTEIN,URINE NEGATIVE (NEGATIVE); URINE SPECIFIC GRAVITY 1.019; UROBILINOGEN,URINE NEGATIVE mg/dL (<2.0)
--- NOTE | 2017-04-22 10:27 | RADIOLOGY REPORT (SQ) ---
EXAM DESCRIPTION: CHEST PA/LAT COMPLETED DATE/TIME: 04/22/2017 10:14 am REASON FOR STUDY: weakness COMPARISON: 01/10/2016 NUMBER OF VIEWS: Two view. TECHNIQUE: Frontal and lateral radiographic views of the chest acquired. LIMITATIONS: Apices partially obscured by positioning. FINDINGS: LUNGS AND PLEURA: No opacities, masses or pneumothorax. No pleural effusion. Attenuated bl ood vessels and flattened olvin-diaphragms. MEDIASTINUM AND HILAR STRUCTURES: No masses. No contour abnormalities. HEART AND VASCULAR STRUCTURES: Stable cardiomegaly. BONES: No acute findings. HARDWARE: None in the chest. OTHER: No other significant finding. IMPRESSION: COPD. NO ACUTE RADIOGRAPHIC FINDING IN THE CHEST. TECHNICAL DOCUMENTATION: JOB ID: [id number] [email or web address]- All Rights Reserved
[2017-04-22 10:53] LABS: ABSOLUTE LYMPHOCYTES (AUTO) 0.4 10^3/uL (0.5-4.7); ABSOLUTE MONOCYTES (AUTO) 0.4 10^3/uL (0.1-1.4); ABSOLUTE NEUT (AUTO) 3.2 10^3/uL (1.7-8.2); BASOPHILS % (AUTO) 0.2 % (0-2); EOSINOPHILS % (AUTO) 0.2 % (0-6); HEMATOCRIT 36.2 % (36.0-47.0); MEAN CORPUSCULAR HEMOGLOBIN 29.8 pg (27.0-33.4); MEAN CORPUSCULAR VOLUME 90 fl (80-97); MONOCYTES % (AUTO) 9.8 % (3-13); PLATELET COUNT 160 10^3/uL (150-450); RED BLOOD COUNT 4.01 10^6/uL (3.72-5.28); RED CELL DISTRIBUTION WIDTH 13.8 % (11.5-14.0); SEGMENTED NEUTROPHILS % (AUTO) 78.8 % (42-78); TOTAL CELLS COUNTED % (AUTO) 100 %; WHITE BLOOD COUNT 4.1 10^3/uL (4.0-10.5)
[2017-04-22 10:57] LABS: INTERNATIONAL RATION (INR) 0.99; PROTHROMBIN TIME 13.8 SEC (11.4-15.4)
[2017-04-22 11:00] LABS: ALANINE AMINOTRANSFERASE 88 U/L (9-52); ALBUMIN 3.8 g/dL (3.5-5.0); ALKALINE PHOSPHATASE 107 U/L (38-126); ANION GAP 7 (5-19); ASPARTATE AMINO TRANSFERASE 146 U/L (14-36); BILIRUBIN,DIRECT 0.2 mg/dL (0.0-0.4); BILIRUBIN,TOTAL 0.5 mg/dL (0.2-1.3); BLOOD UREA NITROGEN 21 mg/dL (7-20); CALCIUM 9.2 mg/dL (8.4-10.2); CARBON DIOXIDE 30 mmol/L (22-30); CHLORIDE 100 mmol/L (98-107); GLUCOSE 81 mg/dL (75-110); POTASSIUM 4.4 mmol/L (3.6-5.0); SODIUM 136.7 mmol/L (137-145); TOTAL PROTEIN 6.3 g/dL (6.3-8.2)
[2017-04-22] MEDS ORDERED: HYDROCODONE/ACETAMINOPHEN 5-325 MG TABLET PO ONE (11:16)
[2017-04-22 11:44] LABS: CREATINE KINASE MB 1.19 ng/mL (<4.55)
[2017-04-22 11:46] LABS: TROPONIN I < 0.012 ng/mL
[2017-04-22 12:35] VITALS: BP 120/55
--- NOTE | 2017-04-22 17:28 | EKG REPORT ---
SEVERITY:- DEFECTIVE ECG - SINUS RHYTHM NONSPECIFIC ST-T CHANGES- INFERIOR LEADS : Confirmed by: Jerson Blackwood MD 22-Apr-2017 17:27:56
== END 2017-04-22 12:36 | disposition home or self-care (01) ==
LOC: ER 08:48
DX: R53.1 Weakness (principal); J44.9 Chronic obstructive pulmonary disease, unspecified; R35.0 Frequency of micturition; R39.89 Other symptoms and signs involving the genitourinary system; R05 Cough; I10 Essential (primary) hypertension; E11.9 Type 2 diabetes mellitus without complications; R60.0 Localized edema
CPT/HCPCS: 93005; 99285; 36415; 87086; 82553; 82550; 85025; 85610; 80053; 81001; 84484; 71046; 93010; A9270

== ENCOUNTER 2017-05-31 09:58 | Emergency (ER) | payer MEDICARE, OTHER ==
--- NOTE | 2017-05-31 10:23 | ER Document Report ---
ED General - General Chief Complaint: General Weakness Stated Complaint: WEAKNESS Time Seen by Provider: 05/31/17 10:20 Notes: The patient is a 86-year-old female, past medical history COPD, hypertension, diabetes, Parkinson's, presents by EMS after she was having difficulty standing up this morning. When she tried to stand up from her chair to use her walker, she felt slightly lightheaded. EMS arrived and her initial blood pressure was 96/46. She was given 500 mL normal saline and she feels much better. On arrival to the ER, blood pressure is 136/84 when she has no complaints at this time. She saw her primary care physician, Dr. Dumont, yesterday and was prescribed a new pressure medications, but she has not filled it yet. She denies chest pain, shortness of breath, fevers, dysuria, focal weakness, numbness, tingling, headache, fall or back pain. TRAVEL OUTSIDE OF THE [place] IN LAST 30 DAYS: No - Related Data Allergies/Adverse Reactions: simvastatin Adverse Reaction (Verified 05/31/17 11:19) Past Medical History - General Information source: Patient - Social History Smoking Status: Unknown if Ever Smoked Family History: Reviewed & Not Pertinent - Past Medical History Cardiac Medical History: Reports: Hx Hypertension - H/O, NO MEDS CURRENTLY Denies: Hx Coronary Artery Disease, Hx Heart Attack Pulmonary Medical History: Reports: Hx Asthma, Hx Bronchitis, Hx COPD - USES INHALERS Denies: Hx Pneumonia Neurological Medical History: Denies: Hx Cerebrovascular Accident, Hx Seizures Endocrine Medical History: Reports: Hx Diabetes Mellitus Type 2 Renal/ Medical History: Denies: Hx Peritoneal Dialysis GI Medical History: Reports: Hx Gastroesophageal Reflux Disease Musculoskeltal Medical History: Reports Hx Arthritis - GENERALIZED Psychiatric Medical History: Denies: Hx Depression Infectious Medical History: Reports: Hx C-Diff Past Surgical History: Reports: Hx Appendectomy, Hx Cardiac Surgery, Hx Cholecystectomy, Hx Orthopedic Surgery - Right hip - Immunizations Hx Diphtheria, Pertussis, Tetanus Vaccination: Yes Hx Pneumococcal Vaccination: 03/20/15 Review of Systems - Review of Systems Notes: REVIEW OF SYSTEMS: CONSTITUTIONAL: -fevers, -chills EENT: -eye pain, -difficulty swallowing, -nasal congestion CARDIOVASCULAR: -chest pain, -syncope. RESPIRATORY: -cough, -SOB GASTROINTESTINAL: -abdominal pain, -nausea, -vomiting, -diarrhea GENITOURINARY: -dysuria, -hematuria MUSCULOSKELETAL: -back pain, -neck pain SKIN: -rash or skin lesions. HEMATOLOGIC: -easy bruising or bleeding. LYMPHATIC: -swollen, enlarged glands. NEUROLOGICAL: -altered mental status or loss of consciousness, -headache, - neurologic symptoms PSYCHIATRIC: -anxiety, -depression. ALL OTHER SYSTEMS REVIEWED AND NEGATIVE. Physical Exam - Vital signs Vitals: Resp Pulse Ox 21 H 98 05/31/17 10:07 05/31/17 10:07 - Notes Notes: PHYSICAL EXAMINATION: GENERAL: Well-appearing, well-nourished and in no acute distress. HEAD: Atraumatic, normocephalic. EYES: Pupils equal round and reactive to light, extraocular movements intact, sclera anicteric, conjunctiva are normal. ENT: nares patent, oropharynx clear without exudates. Moist mucous membranes. NECK: Normal range of motion, supple without lymphadenopathy LUNGS: Breath sounds clear to auscultation bilaterally and equal. No wheezes rales or rhonchi. HEART: Regular rate and rhythm without murmurs ABDOMEN: Soft, nontender, normoactive bowel sounds. No guarding, no rebound. No masses appreciated. EXTREMITIES: Normal range of motion, no pitting or edema. No cyanosis. NEUROLOGICAL: Cranial nerves grossly intact. Normal speech, normal gait. Normal sensory and motor exams. PSYCH: Normal mood, normal affect. SKIN: Warm, Dry, normal turgor, no rashes or lesions noted. Course - Re-evaluation Re-evalutation: Patient appears well and has no complaints at this time. No focal neuro symptoms to suggest a CVA and no source of infection to suggest sepsis. Patient was given a prescription for a new blood pressure med yesterday, but told to hold off on the new medication at this time as it may cause worsening hypotension. She was initially slightly orthostatic, but this resolved after 1 L of fluid. Patient ambulated using her walker and has no complaints at this time. Her blood pressure remained normal. Given very strict return precautions and she understands. - Vital Signs Vital signs: Temp Pulse Resp BP Pulse Ox 97.8 F 72 15 147/78 H 100 05/31/17 11:14 05/31/17 11:18 05/31/17 12:00 05/31/17 11:18 05/31/17 12:00 - Laboratory Result Diagrams: 05/31/17 10:05 05/31/17 10:05 Laboratory results interpreted by me: 05/31/17 05/31/17 05/31/17 10:05 10:05 11:45 Hgb 11.5 L Hct 34.6 L RDW 14.3 H BUN 25 H Creatine Kinase < 20 L Total Protein 5.9 L Ur Leukocyte Esterase TRACE H - Diagnostic Test Radiology reviewed: Image reviewed, Reports reviewed Radiology results interpreted by me: CXR: NAD - EKG Interpretation by Me EKG shows normal: Sinus rhythm, [place], Intervals, QRS Complexes, ST-T Waves Rate: Normal When compared to previous EKG there are: No significant change Discharge - Discharge Clinical Impression: Generalized weakness, Orthostatic dizziness Condition: Stable Disposition: HOME, SELF-CARE Additional Instructions: DIZZINESS: Under normal circumstances, your sense of balance is controlled by a number of signals that your brain receives from several locations: Eyes. No matter what your position, visual signals help you determine where your body is in space and how it's moving. Sensory nerves. These are in your skin, muscles and joints. Sensory nerves send messages to your brain about body movements and positions. Inner ear. The organ of balance in your inner ear is the vestibular labyrinth. It includes loop-shaped structures (semicircular canals) that contain fluid and fine, hair-like sensors that monitor the rotation of your head. Near the semicircular canals are the utricle and saccule, which contain tiny particles called otoconia ([id number]). These particles are attached to sensors that help detect gravity and [id number] motion. Good balance depends on at least two of these three sensory systems working well. For instance, closing your eyes while washing your hair in the shower doesn't mean you'll lose your balance. Signals from your inner ear and sensory nerves help keep you upright. However, if your central nervous system can't process signals from all of these locations, if the messages are contradictory, or if the sensory systems aren't functioning properly, you may experience loss of balance. Dizziness may have a number of potential causes. These may include: Feeling of faintness (presyncope) "Presyncope" is the medical term for feeling faint and lightheaded without losing consciousness. Sometimes nausea, pale skin and a sense of dizziness accompany a feeling of faintness. Causes of presyncope include: Drop in blood pressure (orthostatic hypotension). A dramatic drop in your systolic blood pressure - the higher number in your blood pressure reading - may result in lightheadedness or a feeling of faintness. It can occur after sitting up or standing too quickly. Inadequate output of blood from the heart. Conditions such as partially blocked arteries (atherosclerosis), disease of the heart muscle (cardiomyopathy) , abnormal heart rhythm (arrhythmia) or a decrease in blood volume may cause inadequate blood flow from your heart. Loss of balance (disequilibrium) Disequilibrium is the loss of balance or the feeling of unsteadiness when you walk. Causes may include: Inner ear (vestibular) problems. Abnormalities with your inner ear can cause you to feel like you are floating, have a heavy head or are unsteady in the dark. Sensory disorders. Failing vision and nerve damage in your legs (peripheral neuropathy) are common in older adultsand may result in difficulty maintaining your balance. Joint and muscle problems. Muscle weakness and osteoarthritis - the type of arthritis that involves wear and tear of your joints - can contribute to loss of balance when it involves your weight-bearing joints. Medications. Loss of balance can be a side effect of certain medications, such as anti-seizure drugs, sedatives and tranquilizers. Lightheadedness and other kinds of dizziness Feeling lightheaded is the feeling of being "spaced out" or having the sensation of spinning inside your head. It can also give you the sensation that if your lightheadedness worsens, you might lose consciousness. Causes may include: Inner ear disorders. These abnormalities of your inner ear can lead to illusions of motion and make you feel like you're floating. Anxiety disorders. Certain anxiety disorders, such as panic attacks and a fear of leaving home or being in large, open spaces (agoraphobia), may cause lightheadedness. Hyperventilation. Abnormally rapid breathing that often accompanies anxiety disorders may make you feel lightheaded. NORMAL EXAM AND WORKUP: At this time, your examination and workup show no significant abnormality. No significant abnormal physical findings were noted. All laboratory, EKG, and imaging (x-ray, CT scans, ultrasound) studies that were ordered show no significant abnormality. Although your examination and all studies that were ordered showed no significant abnormal finding, there are no examinations and no studies that are 100% accurate. There is always the possibility that some abnormality could exist and not be detected with physical examination or within the limits and capabilities of laboratory and other studies. You should return or follow up as you were instructed on your visit today for further evaluation if your symptoms do not resolve. FOLLOW-UP CARE: If you have been referred to a physician for follow-up care, call the physician s office for an appointment as you were instructed or within the next two days. If you experience worsening or a significant change in your symptoms, notify the physician immediately or return to the Emergency Department at any time for re-evaluation. Hold off on taking any new blood pressure medications as it may drop your blood pressure. Return to the ER if you have worsening symptoms or any other concerns. Forms: Elevated Blood Pressure Referrals: ERIKA DUMONT MD [Primary Care Provider] - Follow up as needed
[2017-05-31] MEDS ORDERED: NORMAL SALINE 1000 ML 1,000 ML IV ONE ×2 (10:33→11:40)
[2017-05-31 10:36] LABS: ABSOLUTE EOSINOPHILS # (AUTO) 0.1 10^3/uL (0.0-0.6); ABSOLUTE LYMPHOCYTES (AUTO) 1.7 10^3/uL (0.5-4.7); ABSOLUTE MONOCYTES (AUTO) 0.5 10^3/uL (0.1-1.4); ABSOLUTE NEUT (AUTO) 3.9 10^3/uL (1.7-8.2); BASOPHILS % (AUTO) 0.4 % (0-2); EOSINOPHILS % (AUTO) 1.4 % (0-6); HEMATOCRIT 34.6 % (36.0-47.0); HEMOGLOBIN 11.5 g/dL (12.0-15.5); LYMPHOCYTES % (AUTO) 27.2 % (13-45); MEAN CORPUSCULAR HGB CONC 33.3 g/dL (32.0-36.0); MEAN CORPUSCULAR VOLUME 90 fl (80-97); MONOCYTES % (AUTO) 8.5 % (3-13); PLATELET COUNT 178 10^3/uL (150-450); RED BLOOD COUNT 3.84 10^6/uL (3.72-5.28); RED CELL DISTRIBUTION WIDTH 14.3 % (11.5-14.0); SEGMENTED NEUTROPHILS % (AUTO) 62.5 % (42-78); TOTAL CELLS COUNTED % (AUTO) 100 %; WHITE BLOOD COUNT 6.2 10^3/uL (4.0-10.5)
[2017-05-31 10:53] LABS: ALANINE AMINOTRANSFERASE 10 U/L (9-52); ALBUMIN 3.7 g/dL (3.5-5.0); ALKALINE PHOSPHATASE 46 U/L (38-126); ANION GAP 10 (5-19); ASPARTATE AMINO TRANSFERASE 18 U/L (14-36); BILIRUBIN,DIRECT 0.4 mg/dL (0.0-0.4); BILIRUBIN,TOTAL 0.4 mg/dL (0.2-1.3); BLOOD UREA NITROGEN 25 mg/dL (7-20); CALCIUM 9.5 mg/dL (8.4-10.2); CARBON DIOXIDE 27 mmol/L (22-30); CHLORIDE 106 mmol/L (98-107); GLUCOSE 87 mg/dL (75-110); POTASSIUM 3.7 mmol/L (3.6-5.0); SODIUM 142.5 mmol/L (137-145); TOTAL PROTEIN 5.9 g/dL (6.3-8.2)
[2017-05-31 10:54] LABS: CREATINE KINASE < 20 U/L (30-135)
--- NOTE | 2017-05-31 11:26 | RADIOLOGY REPORT (SQ) ---
EXAM DESCRIPTION: CHEST SINGLE VIEW COMPLETED DATE/TIME: 05/31/2017 11:13 am REASON FOR STUDY: cough COMPARISON: 04/22/2017 EXAM PARAMETERS: NUMBER OF VIEWS: One view. TECHNIQUE: Single frontal radiographic view of the chest acquired. RADIATION DOSE: NA LIMITATIONS: None. FINDINGS: LUNGS AND PLEURA: Mild subsegmental atelectasis in the left base. No acute infiltrate or effusion. MEDIASTINUM AND HILAR STRUCTURES: No masses. Contour normal. HEART AND VASCULAR STRUCTURES: Heart normal in size. Normal vasculature. BONES: No acute findings. HARDWARE: None in the chest. OTHER: No other significant finding. IMPRESSION: NO ACUTE RADIOGRAPHIC FINDING IN THE CHEST. TECHNICAL DOCUMENTATION: JOB ID: [id number] [employer]- All Rights Reserved Reading location - IP/workstation name: [email or web address]
[2017-05-31 12:02] LABS: APPEARANCE,URINE SLIGHTLY-CLOUDY; BILIRUBIN,URINE NEGATIVE (NEGATIVE); COLOR,URINE YELLOW; GLUCOSE, URINE NEGATIVE (NEGATIVE); KETONES,URINE NEGATIVE (NEGATIVE); LEUKOCYTE ESTERASE,URINE TRACE (NEGATIVE); NITRITE,URINE NEGATIVE (NEGATIVE); PROTEIN,URINE NEGATIVE (NEGATIVE); URINE SPECIFIC GRAVITY 1.005; UROBILINOGEN,URINE NEGATIVE mg/dL (<2.0)
[2017-05-31 12:57] VITALS: BP 137/93
--- NOTE | 2017-05-31 13:17 | EKG REPORT ---
SEVERITY:- ABNORMAL ECG - SINUS RHYTHM ATRIAL PREMATURE COMPLEX NONSPECIFIC ST-T CHANGES- INFERIOR LEADS : Confirmed by: Jerson Blackwood MD 31-May-2017 13:16:55
== END 2017-05-31 12:57 | disposition home or self-care (01) ==
LOC: ER 09:58
DX: I95.1 Orthostatic hypotension (principal); R53.1 Weakness; R42 Dizziness and giddiness; J44.9 Chronic obstructive pulmonary disease, unspecified; I10 Essential (primary) hypertension; E11.9 Type 2 diabetes mellitus without complications; G20 Parkinson's disease
CPT/HCPCS: 93005; 99285; 96360; 36415; 82550; 83605; 85025; 80053; 81001; 84484; 71045; 93010; J7030

== ENCOUNTER 2017-07-28 11:37 | Emergency (ER) | payer MEDICARE, OTHER ==
[2017-07-28] MEDS ORDERED: NORMAL SALINE 1000 ML 1,000 ML IV ONE ×2 (11:42→12:27)
[2017-07-28 12:05] LABS: ABSOLUTE EOSINOPHILS # (AUTO) 0.1 10^3/uL (0.0-0.6); ABSOLUTE LYMPHOCYTES (AUTO) 1.5 10^3/uL (0.5-4.7); ABSOLUTE MONOCYTES (AUTO) 0.5 10^3/uL (0.1-1.4); ABSOLUTE NEUT (AUTO) 4.8 10^3/uL (1.7-8.2); BASOPHILS % (AUTO) 0.3 % (0-2); EOSINOPHILS % (AUTO) 1.2 % (0-6); HEMATOCRIT 35.6 % (36.0-47.0); HEMOGLOBIN 11.8 g/dL (12.0-15.5); LYMPHOCYTES % (AUTO) 21.6 % (13-45); MEAN CORPUSCULAR HEMOGLOBIN 29.3 pg (27.0-33.4); MEAN CORPUSCULAR VOLUME 89 fl (80-97); MONOCYTES % (AUTO) 7.2 % (3-13); PLATELET COUNT 208 10^3/uL (150-450); RED BLOOD COUNT 4.01 10^6/uL (3.72-5.28); RED CELL DISTRIBUTION WIDTH 14.2 % (11.5-14.0); SEGMENTED NEUTROPHILS % (AUTO) 69.7 % (42-78); TOTAL CELLS COUNTED % (AUTO) 100 %; VENOUS BLOOD BASE EXCESS 1.2 mmol/L; VENOUS BLOOD PCO2 54.6 mmHg (35-63); VENOUS BLOOD PH 7.33 (7.30-7.42); WHITE BLOOD COUNT 6.9 10^3/uL (4.0-10.5)
[2017-07-28 12:08] LABS: INTERNATIONAL RATION (INR) 0.99; PROTHROMBIN TIME 13.6 SEC (11.4-15.4)
--- NOTE | 2017-07-28 12:21 | ER Document Report ---
ED General - General Stated Complaint: BLOOD PRESSURE ISSUES Time Seen by Provider: 07/28/17 12:00 TRAVEL OUTSIDE OF THE [place] 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 Patient states that she has already stopped her losartan. She is also address this issue with her primary care provider who is getting in touch with Cal Hobbs to figure out her carbo levodopa medication to see if that is causing her blood pressure to go low. Operator Vacuum states that she is at baseline with her mentation, behavior, and speech otherwise. Patient states that she is still eating and drinking and urinating normally as well as having normal bowel movements. She has no other concerns or complaints other than when her blood pressure goes low she feels weak. Patient states that currently she feels well after receiving IV fluids. Denies any other significant cardiac history. Denies any headache, fever, head injury, neck pain, changes in vision/speech/mentation/hearing, URI, sore throat , chest pain, palpitations, syncope, shortness of breath, wheeze, dyspnea, abdominal pain, nausea/vomiting/diarrhea, urinary retention, dysuria, hematuria , loss of control of bowel or bladder, numbness/tingling, muscle paralysis/ weakness, or rash. - Related Data Allergies/Adverse Reactions: simvastatin Adverse Reaction (Verified 05/31/17 11:19) Past Medical History - Social History Smoking Status: Unknown if Ever Smoked Family History: Reviewed & Not Pertinent - Past Medical History Cardiac Medical History: Reports: Hx Hypertension - H/O, NO MEDS CURRENTLY Denies: Hx Coronary Artery Disease, Hx Heart Attack Pulmonary Medical History: Reports: Hx Asthma, Hx Bronchitis, Hx COPD - USES INHALERS Denies: Hx Pneumonia Neurological Medical History: Denies: Hx Cerebrovascular Accident, Hx Seizures Endocrine Medical History: Reports: Hx Diabetes Mellitus Type 2 Renal/ Medical History: Denies: Hx Peritoneal Dialysis GI Medical History: Reports: Hx Gastroesophageal Reflux Disease Musculoskeltal Medical History: Reports Hx Arthritis - GENERALIZED Psychiatric Medical History: Denies: Hx Depression Infectious Medical History: Reports: Hx C-Diff Past Surgical History: Reports: Hx Appendectomy, Hx Cardiac Surgery, Hx Cholecystectomy, Hx Orthopedic Surgery - Right hip - Immunizations Hx Diphtheria, Pertussis, Tetanus Vaccination: Yes Hx Pneumococcal Vaccination: 03/20/15 Review of Systems - Review of Systems -: Yes All other systems reviewed and negative Physical Exam - Vital signs Vitals: Resp Pulse Ox 18 87 L 07/28/17 11:46 07/28/17 11:46 - Notes Notes: PHYSICAL EXAMINATION: GENERAL: Well-appearing, frail but otherwised nourished, and in no acute distress. A&Ox4. Answers questions appropriately. Pleasant. HEAD: Atraumatic, normocephalic. Non-tender. EYES: Pupils equal round and reactive to light, extraocular movements intact, sclera anicteric, conjunctiva are normal. no nystagmus. ENT: Nares patent and without discharge. oropharynx clear without exudates. No tonsilar hypertrophy or erythema. Moist mucous membranes. NECK: Normal range of motion, supple without lymphadenopathy. No rigidity. No midline tenderness. Chest: No flail chest. equal rise/fall. Non-tender LUNGS: Breath sounds clear to auscultation bilaterally and equal. No wheezes rales or rhonchi. HEART: Regular rate and rhythm without murmurs, rubs, gallops. ABDOMEN: Soft, nontender, nondistended abdomen. No guarding, no rebound. No masses appreciated. Normal bowel sounds present. No CVA tenderness bilaterally. Musculoskeletal: Ext b/l: FROM to passive/active. Strength 5+/5. No deficits noted. No bony tenderness of extremities. Back: FROM to passive/active. Strength 5+/5. No vertebral point tenderness, stepoffs, or deformities. No other bony tenderness or ecchymosis. SLR negative b/l. Extremities: No cyanosis, clubbing, or edema b/l. Peripheral pulses 2+. Capillary refill less than 2 seconds. NEUROLOGICAL: NIH 0. GCS 15. Cranial nerves grossly intact. Normal speech, ataxic gait. Normal sensory, motor exams. Reflexes 2+ b/l. BARI's negative. Pronator drift negative. Heel/concepcion, finger/nose wnl. PSYCH: Normal mood, normal affect. SKIN: Warm, Dry, normal turgor, no rashes or lesions noted. Course - Re-evaluation Re-evalutation: 05/11/18 13:02 left a VM with her Neurologist to call me back. 07/28/17 13:[address] Covington, Neuro, who recommended fludrocortisone/Midodrine, but to speak with her PCM. Spoke with Dr. Dumont who advised fluids and recheck in their office next week. She was seen the other day by him with similar symptoms/blood pressure issues at that time as well, but he was waiting to speak with her Neurologist. Currently, patient is responding well to fluids and her current BP is 143/69. He would like her to f/u next week in the office. Patient is an afebrile, well-hydrated, 86-year-old female who presents to the ED with episodes of low blood pressure and acute UTI. Vitals are acceptable. PE is otherwise unremarkable for any acute focal neurological deficits. She has no significant tachycardia, tachypnea, or hypoxia. She is tolerating p.o. without difficulties. Orthostatics were slightly positive today as they were in her primary care doctor's office as well recently. CBC, CMP were unremarkable for any acute pathology. See UA results, UC pending. Chest x-ray was unremarkable for any acute pathology. No other labs or imaging warranted at this time based on H&P. NIH 0, GCS 15, cranial nerves grossly intact. low suspicion for any sepsis, meningitis, severe dehydration, respiratory compromise , acute intracranial pathology, or other systemic emergent condition at this time. Pt is aware that condition can change from initial presentation and she needs to monitor symptoms closely and seek medical attention with any acute changes. keflex rx. Conservative measures otherwise for symptoms with close monitoring of the blood pressure. Recheck with your PCM i early next week. Return to the ED with any worsening/concerning symptoms otherwise as reviewed discharge. Patient is in agreement. - Vital Signs Vital signs: Temp Pulse Resp BP Pulse Ox 57 L 18 157/61 H 96 07/28/17 12:53 07/28/17 13:01 07/28/17 13:01 07/28/17 13:01 - Laboratory Result Diagrams: 07/28/17 11:40 07/28/17 11:40 Laboratory results interpreted by me: 07/28/17 07/28/17 07/28/17 11:40 11:40 12:30 Hgb 11.8 L Hct 35.6 L RDW 14.2 H Total Protein 5.5 L Albumin 3.3 L Ur Leukocyte Esterase SMALL H Discharge - Discharge Clinical Impression: Acute UTI (urinary tract infection) Low blood pressure Qualifiers: Hypotension type: unspecified hypotension type Qualified Code(s): I95.9 - Hypotension, unspecified Condition: Stable Disposition: HOME, SELF-CARE Instructions: Cephalexin ([facility]), Urinary Tract Infection ([facility]) Additional Instructions: Maintain adequate fluid and food intake Take home medications as directed Exercise as able healthy diet Monitor blood pressure daily and keep a log Monitor symptoms for any acute changes Recheck with your PCM in 3-5 days Consider a follow-up with cardiology Return to the ED with any worsening symptoms and/or development of fever, headache, chest pain, palpitations, syncope, shortness of breath, trouble breathing, abdominal pain, n/v/d, blood in stool/urine, loss of control of bowel /bladder, urinary retention, muscle weakness/paralysis, numbness/tingling, or other worsening symptoms that are concerning to you. Prescriptions: Cephalexin Monohydrate [Keflex 500 mg Capsule] 500 mg PO BID #20 capsule Referrals: ERIKA DUMONT MD [Primary Care Provider] - 07/31/17
[2017-07-28 12:22] LABS: ALANINE AMINOTRANSFERASE 14 U/L (9-52); ALBUMIN 3.3 g/dL (3.5-5.0); ALKALINE PHOSPHATASE 45 U/L (38-126); ANION GAP 8 (5-19); ASPARTATE AMINO TRANSFERASE 17 U/L (14-36); BILIRUBIN,DIRECT 0.2 mg/dL (0.0-0.4); BILIRUBIN,TOTAL 0.3 mg/dL (0.2-1.3); BLOOD UREA NITROGEN 20 mg/dL (7-20); CALCIUM 9.1 mg/dL (8.4-10.2); CARBON DIOXIDE 30 mmol/L (22-30); CHLORIDE 106 mmol/L (98-107); GLUCOSE 106 mg/dL (75-110); POTASSIUM 3.9 mmol/L (3.6-5.0); SODIUM 143.6 mmol/L (137-145); TOTAL PROTEIN 5.5 g/dL (6.3-8.2)
--- NOTE | 2017-07-28 12:43 | RADIOLOGY REPORT (SQ) ---
EXAM DESCRIPTION: CHEST SINGLE VIEW COMPLETED DATE/TIME: 07/28/2017 12:19 pm REASON FOR STUDY: ams COMPARISON: 05/31/2017 EXAM PARAMETERS: NUMBER OF VIEWS: One view. TECHNIQUE: Single frontal radiographic view of the chest acquired. RADIATION DOSE: NA LIMITATIONS: Positioning. FINDINGS: LUNGS AND PLEURA: No opacities, masses or pneumothorax. No pleural effusion. MEDIASTINUM AND HILAR STRUCTURES: No masses. Contour normal. HEART AND VASCULAR STRUCTURES: Heart normal in size. Normal vasculature. BONES: No acute findings. HARDWARE: None in the chest. OTHER: No other significant finding. IMPRESSION: NO ACUTE RADIOGRAPHIC FINDING IN THE CHEST. TECHNICAL DOCUMENTATION: JOB ID: [id number] [employer]- All Rights Reserved Reading location - IP/workstation name: Unknown
[2017-07-28 13:14] LABS: APPEARANCE,URINE SLIGHTLY-CLOUDY; BILIRUBIN,URINE NEGATIVE (NEGATIVE); COLOR,URINE YELLOW; GLUCOSE, URINE NEGATIVE (NEGATIVE); KETONES,URINE NEGATIVE (NEGATIVE); LEUKOCYTE ESTERASE,URINE SMALL (NEGATIVE); NITRITE,URINE NEGATIVE (NEGATIVE); PROTEIN,URINE NEGATIVE (NEGATIVE); URINE SPECIFIC GRAVITY 1.006; UROBILINOGEN,URINE NEGATIVE mg/dL (<2.0)
--- NOTE | 2017-07-28 13:39 | EKG REPORT ---
SEVERITY:- ABNORMAL ECG - SINUS RHYTHM NONSPECIFIC T ABNORMALITIES, LATERAL LEADS : Confirmed by: Jerson Blackwood MD 28-Jul-2017 13:38:49
[2017-07-28 14:42] VITALS: BP 171/75
== END 2017-07-28 14:15 | disposition home or self-care (01) ==
LOC: ER 11:37
DX: I95.9 Hypotension, unspecified (principal); N39.0 Urinary tract infection, site not specified; I10 Essential (primary) hypertension; J44.9 Chronic obstructive pulmonary disease, unspecified; E11.9 Type 2 diabetes mellitus without complications; R05 Cough; R53.1 Weakness; G20 Parkinson's disease; Z79.899 Other long term (current) drug therapy
CPT/HCPCS: 93005; 99285; 96360; 96361; 36415; 87040; 87086; 85025; 85610; 87088; 80053; 81001; 87186; 82803; 83605; 71045; 93010; J7030

== ENCOUNTER 2017-08-07 10:48 | Emergency (ER) | payer MEDICARE, OTHER ==
--- NOTE | 2017-08-07 11:28 | ER Document Report ---
ED General - General Chief Complaint: Low Blood Pressure Stated Complaint: WEAKNESS Time Seen by Provider: 08/07/17 10:54 Mode of Arrival: Medic Information source: Patient, Emergency Med Personnel, [facility] Records Notes: 86-year-old female with diabetes hyperlipidemia, peripheral vascular disease, hypertension now hypotensive presents via EMS after an episode of lightheadedness while walking to the bathroom. Patient states that she called for her daughter who helped lower her to the floor. She denies any falls. Patient states she has been having episodes of dizziness with walking, standing. She denies any preceding chest pain, sob, palpiataions or diaphoresis. she has been recently taken off her BP meds due to similar episodes. Patient's pcp recently started the patient on fludrocortisone 0.1mg. she has been taken this for five days now. Patient has been eating and drinking normally.she denies any black or bloody stools. she denies any other changes in medications. Admits to constipation. TRAVEL OUTSIDE OF THE [place] IN LAST 30 DAYS: No COUNTRY TRAVELED TO/FROM: [facility] Onset: Just prior to arrival Onset/Duration: Sudden Quality of pain: No pain Associated symptoms: denies: Chest pain, Diarrhea, Nausea, Vomiting, Shortness of breath Exacerbated by: Standing, Movement, Walking Relieved by: Sitting Similar symptoms previously: Yes Recently seen / treated by doctor: Yes - Related Data Allergies/Adverse Reactions: simvastatin Adverse Reaction (Verified 05/31/17 11:19) Past Medical History - General Information source: Patient, Dr. Phelps, [facility] Records - Social History Smoking Status: Never Smoker Frequency of alcohol use: None Drug Abuse: None Lives with: Family Family History: Reviewed & Not Pertinent - Past Medical History Cardiac Medical History: Reports: Hx Hypertension - H/O, NO MEDS CURRENTLY Denies: Hx Coronary Artery Disease, Hx Heart Attack Pulmonary Medical History: Reports: Hx Asthma, Hx Bronchitis, Hx COPD - USES INHALERS Denies: Hx Pneumonia Neurological Medical History: Denies: Hx Cerebrovascular Accident, Hx Seizures Endocrine Medical History: Reports: Hx Diabetes Mellitus Type 2 Renal/ Medical History: Denies: Hx Peritoneal Dialysis GI Medical History: Reports: Hx Gastroesophageal Reflux Disease, Hx Hiatal Hernia Musculoskeltal Medical History: Reports Hx Arthritis - GENERALIZED Psychiatric Medical History: Denies: Hx Depression Infectious Medical History: Reports: Hx C-Diff Past Surgical History: Reports: Hx Appendectomy, Hx Cardiac Surgery, Hx Cholecystectomy, Hx Orthopedic Surgery - Right hip - Immunizations Hx Diphtheria, Pertussis, Tetanus Vaccination: Yes Hx Pneumococcal Vaccination: 03/20/15 Review of Systems - Review of Systems Constitutional: denies: Diaphoresis, Fever, Weakness EENT: denies: Blurred vision Cardiovascular: Dizziness, Lightheaded. denies: Chest pain, Palpitations, Heart racing, Syncope Respiratory: denies: Short of breath Gastrointestinal: Constipation. denies: Abdominal pain, Nausea, Blood streaked bowels, Black stools Genitourinary: denies: Dysuria Female Genitourinary: No symptoms reported Musculoskeletal: No symptoms reported Skin: denies: Lesions Hematologic/Lymphatic: denies: Blood clots Neurological/Psychological: denies: Confusion, Sensory change, Lost consciousness, Speech impairment -: Yes All other systems reviewed and negative Physical Exam - Vital signs Vitals: Temp Pulse Resp BP Pulse Ox 97.4 F 66 18 101/41 L 93 08/07/17 10:55 08/07/17 10:55 08/07/17 10:55 08/07/17 10:55 08/07/17 10:55 Interpretation: Normal, Hypotensive. No: Febrile - Notes Notes: PHYSICAL EXAMINATION: GENERAL: Well-appearing, well-nourished and in no acute distress. HEAD: Atraumatic, normocephalic. EYES: Pupils equal round and reactive to light, extraocular movements intact, conjunctiva are normal. ENT: Nares patent, oropharynx clear without exudates. Moist mucous membranes. NECK: Normal range of motion, supple without lymphadenopathy LUNGS: Breath sounds clear to auscultation bilaterally and equal. No wheezes rales or rhonchi. HEART: Regular rate and rhythm without murmurs ABDOMEN: Soft, nontender, nondistended abdomen. No guarding, no rebound. No masses appreciated. Female : deferred Musculoskeletal: Normal range of motion, no pitting or edema. No cyanosis. NEUROLOGICAL: Cranial nerves grossly intact. Normal speech, normal gait. Normal sensory, motor exams PSYCH: Tearful, normal affect. Denies depression but states she is tired of coming into the hospital. SKIN: Warm, Dry, normal turgor, no rashes or lesions noted. Course - Re-evaluation Re-evalutation: Laboratory 08/07/17 08/07/17 08/07/17 11:35 11:35 11:35 WBC 6.1 RBC 3.98 Hgb 11.7 L Hct 35.7 L MCV 90 MCH 29.4 MCHC 32.7 RDW 14.3 H Plt Count 194 Seg Neutrophils % 68.2 Lymphocytes % 23.0 Monocytes % 6.8 Eosinophils % 1.6 Basophils % 0.4 Absolute Neutrophils 4.2 Absolute Lymphocytes 1.4 Absolute Monocytes 0.4 Absolute Eosinophils 0.1 Absolute Basophils 0.0 Sodium 144.5 Potassium 3.9 Chloride 105 Carbon Dioxide 30 Anion Gap 10 BUN 24 H Creatinine 0.64 Est GFR ( Amer) > 60 Est GFR (Non-Af Amer) > 60 Glucose 94 Calcium 8.9 Magnesium 1.8 Total Bilirubin 0.3 Direct Bilirubin 0.2 Neonat Total Bilirubin Not Reportable Neonat Direct Bilirubin Not Reportable Neonat Indirect Bili Not Reportable AST 15 ALT 13 Alkaline Phosphatase 49 Creatine Kinase < 20 L CK-MB (CK-2) 0.68 Troponin I < 0.012 Total Protein 5.6 L Albumin 3.4 L Urine Color Urine Appearance Urine pH Ur Specific [place] Urine Protein Urine Glucose (UA) Urine Ketones Urine Blood Urine Nitrite Urine Bilirubin Urine Urobilinogen Ur Leukocyte Esterase Urine WBC (Auto) Urine RBC (Auto) U Hyaline Cast (Auto) Squamous Epi Cells Auto Urine Mucus (Auto) Urine Ascorbic Acid Stool Occult Blood 08/07/17 08/07/17 12:20 12:39 WBC RBC Hgb Hct MCV MCH MCHC RDW Plt Count Seg Neutrophils % Lymphocytes % Monocytes % Eosinophils % Basophils % Absolute Neutrophils Absolute Lymphocytes Absolute Monocytes Absolute Eosinophils Absolute Basophils Sodium Potassium Chloride Carbon Dioxide Anion Gap BUN Creatinine Est GFR ( Amer) Est GFR (Non-Af Amer) Glucose Calcium Magnesium Total Bilirubin Direct Bilirubin Neonat Total Bilirubin Neonat Direct Bilirubin Neonat Indirect Bili AST ALT Alkaline Phosphatase Creatine Kinase CK-MB (CK-2) Troponin I Total Protein Albumin Urine Color YELLOW Urine Appearance SLIGHTLY-CLOUDY Urine pH 5.0 Ur Specific [place] 1.014 Urine Protein NEGATIVE Urine Glucose (UA) NEGATIVE Urine Ketones TRACE H Urine Blood NEGATIVE Urine Nitrite NEGATIVE Urine Bilirubin NEGATIVE Urine Urobilinogen NEGATIVE Ur Leukocyte Esterase NEGATIVE Urine WBC (Auto) 1 Urine RBC (Auto) 0 U Hyaline Cast (Auto) 1 Squamous Epi Cells Auto <1 Urine Mucus (Auto) RARE Urine Ascorbic Acid NEGATIVE Stool Occult Blood NEGATIVE 05/22/18 08:55 08/08/17 08:54 86-year-old female with diabetes hyperlipidemia, peripheral vascular disease, hypertension now hypotensive presents via EMS after an episode of lightheadedness while walking to the bathroom. Patient states that she called for her daughter who helped lower her to the floor. She denies any falls. Patient states she has been having episodes of dizziness with walking, standing. Patient was seen by myself upon arrival. Vital signs were reviewed. Patient is afebrile, hypertensive and not hypoxic. Patient does not appear toxic or dehydrated. They are in no acute distress. Previous medical records and nursing notes reviewed. Significant findings include a significant drop in systolic blood pressure when patient stands. Since this has been an issue on several of her previous ED visits. CBC shows mild anemia without leukocytosis. CMP shows no electrolyte abnormalities and normal renal function. Stool is negative for blood. Patient did receive 2 L of IV fluids and repeat orthostatics are now normal. I did speak to the patient's primary care physician Dr. Dumont who recommends increasing her current dose of fludrocortisone from 0.1 mg to 0.2 mg daily. Patient and daughter are agreeable with this. Patient provided the opportunity to ask questions, and express concerns. Discharge instructions discussed. Patient is agreeable with discharge home. Return indications explained and discussed with the patient who displays understanding. Patient encouraged to return to the emergency department immediately with any concerns. 08/08/17 08:55 - Vital Signs Vital signs: Temp Pulse Resp BP Pulse Ox 97.4 F 73 20 177/82 H 91 L 08/07/17 10:55 08/07/17 11:55 08/07/17 17:00 08/07/17 17:00 08/07/17 17:00 - Laboratory Result Diagrams: 08/07/17 11:35 08/07/17 11:35 Laboratory results interpreted by me: 08/07/17 08/07/17 08/07/17 11:35 11:35 12:20 Hgb 11.7 L Hct 35.7 L RDW 14.3 H BUN 24 H Creatine Kinase < 20 L Total Protein 5.6 L Albumin 3.4 L Urine Ketones TRACE H Discharge - Discharge Clinical Impression: Orthostatic hypotension Condition: Good Disposition: HOME, SELF-CARE Instructions: Orthostatic Hypotension ([facility]) Additional Instructions: I did speak to your primary care physician who would like you to take 0.2 mg of your fludrocortisone daily instead of 0.1 mg. Prescriptions: Fludrocortisone Acetate 0.2 mg PO DAILY #28 tablet Referrals: ERIKA DUMONT MD [Primary Care Provider] - Follow up in 3-5 days
[2017-08-07 11:51] LABS: ABSOLUTE EOSINOPHILS # (AUTO) 0.1 10^3/uL (0.0-0.6); ABSOLUTE LYMPHOCYTES (AUTO) 1.4 10^3/uL (0.5-4.7); ABSOLUTE MONOCYTES (AUTO) 0.4 10^3/uL (0.1-1.4); ABSOLUTE NEUT (AUTO) 4.2 10^3/uL (1.7-8.2); BASOPHILS % (AUTO) 0.4 % (0-2); EOSINOPHILS % (AUTO) 1.6 % (0-6); HEMATOCRIT 35.7 % (36.0-47.0); HEMOGLOBIN 11.7 g/dL (12.0-15.5); MEAN CORPUSCULAR HEMOGLOBIN 29.4 pg (27.0-33.4); MEAN CORPUSCULAR HGB CONC 32.7 g/dL (32.0-36.0); MEAN CORPUSCULAR VOLUME 90 fl (80-97); MONOCYTES % (AUTO) 6.8 % (3-13); PLATELET COUNT 194 10^3/uL (150-450); RED BLOOD COUNT 3.98 10^6/uL (3.72-5.28); RED CELL DISTRIBUTION WIDTH 14.3 % (11.5-14.0); SEGMENTED NEUTROPHILS % (AUTO) 68.2 % (42-78); TOTAL CELLS COUNTED % (AUTO) 100 %; WHITE BLOOD COUNT 6.1 10^3/uL (4.0-10.5)
[2017-08-07] MEDS ORDERED: NORMAL SALINE 1000 ML 1,000 ML IV ONE ×2 (11:57→15:07)
[2017-08-07 12:10] LABS: ALANINE AMINOTRANSFERASE 13 U/L (9-52); ALBUMIN 3.4 g/dL (3.5-5.0); ALKALINE PHOSPHATASE 49 U/L (38-126); ANION GAP 10 (5-19); ASPARTATE AMINO TRANSFERASE 15 U/L (14-36); BILIRUBIN,DIRECT 0.2 mg/dL (0.0-0.4); BILIRUBIN,TOTAL 0.3 mg/dL (0.2-1.3); BLOOD UREA NITROGEN 24 mg/dL (7-20); CALCIUM 8.9 mg/dL (8.4-10.2); CARBON DIOXIDE 30 mmol/L (22-30); CHLORIDE 105 mmol/L (98-107); CREATINE KINASE < 20 U/L (30-135); GLUCOSE 94 mg/dL (75-110); POTASSIUM 3.9 mmol/L (3.6-5.0); SODIUM 144.5 mmol/L (137-145); TOTAL PROTEIN 5.6 g/dL (6.3-8.2)
[2017-08-07 12:22] LABS: CREATINE KINASE MB 0.68 ng/mL (<4.55)
[2017-08-07 12:23] LABS: TROPONIN I < 0.012 ng/mL
--- NOTE | 2017-08-07 12:48 | EKG REPORT ---
SEVERITY:- ABNORMAL ECG - INCOMPLETE ANALYSIS DUE TO MISSING DATA IN PRECORDIAL LEAD(S) SINUS BRADYCARDIA. BORDERLINE T ABNORMALITIES, ANT-LAT LEADS : Confirmed by: Jerson Blackwood MD 07-Aug-2017 12:48:39
[2017-08-07 12:58] LABS: APPEARANCE,URINE SLIGHTLY-CLOUDY; BILIRUBIN,URINE NEGATIVE (NEGATIVE); COLOR,URINE YELLOW; GLUCOSE, URINE NEGATIVE (NEGATIVE); KETONES,URINE TRACE mg/dL (NEGATIVE); LEUKOCYTE ESTERASE,URINE NEGATIVE (NEGATIVE); NITRITE,URINE NEGATIVE (NEGATIVE); PROTEIN,URINE NEGATIVE (NEGATIVE); URINE SPECIFIC GRAVITY 1.014; UROBILINOGEN,URINE NEGATIVE mg/dL (<2.0)
[2017-08-07 17:11] VITALS: BP 177/82
--- NOTE | 2017-08-07 18:03 | EKG REPORT ---
SEVERITY:- BORDERLINE ECG - SINUS RHYTHM BORDERLINE T WAVE ABNORMALITIES : Confirmed by: Jerson Blackwood MD 07-Aug-2017 18:02:11
== END 2017-08-07 17:11 | disposition home or self-care (01) ==
LOC: ER 10:48
DX: I95.1 Orthostatic hypotension (principal); D64.9 Anemia, unspecified; E11.51 Type 2 diabetes mellitus with diabetic peripheral angiopathy without gangrene; I10 Essential (primary) hypertension; R42 Dizziness and giddiness; J44.9 Chronic obstructive pulmonary disease, unspecified; K59.00 Constipation, unspecified; E78.5 Hyperlipidemia, unspecified
CPT/HCPCS: 93005; 99285; 96360; 96361; 36415; 82553; 82550; 83735; 85025; 82272; 80053; 81001; 84484; 93010; J7030

== ENCOUNTER 2017-08-28 10:16 | Inpatient (IN) | payer MEDICARE, OTHER ==
[2017-08-28] MEDS ORDERED: IPRATROPIUM/ALBUTEROL 0.5-2.5 MG/3 ML AMPUL NEB ONE (10:36)
--- NOTE | 2017-08-28 10:37 | ER Document Report ---
ED Dizziness/Weakness - General Mode of Arrival: Ambulatory Information source: Patient TRAVEL OUTSIDE OF THE [place] IN LAST 30 DAYS: No COUNTRY TRAVELED TO/FROM: [place] <HUMA YANG - Last Filed: 08/28/17 13:28> <LORERICARDO Morrison - Last Filed: 08/28/17 13:36> - General Chief Complaint: General Weakness Stated Complaint: WEAKNESS Time Seen by Provider: 08/28/17 10:21 Notes: Patient is an 87 year old female with diabetes, hyperlipidemia, peripheral vascular disease presents to the emergency department complaining of general weakness, cough and chest congestion onset 2 weeks ago. Patient states that she feels so weak she can hardly stand on her feet. She describes her cough as productive with green sputum. Patient also complains of some nausea. Patient denies any pain, recent falls or trouble breathing. Patient had a recent UTI and was given 2 rounds of antibiotics which she finished approximately 2 weeks ago. Patient was seen on 08/07/2017 presenting with similar symptoms and hypotensive. Her medication of Florinef was then increased from 0.1mg to 0.2 mg daily. Patient's PCP is Dr. Dumont. (HUMA YANG) - Related Data Allergies/Adverse Reactions: simvastatin Adverse Reaction (Verified 08/28/17 10:29) Past Medical History - General Information source: Patient, Relative - Social History Smoking Status: Unknown if Ever Smoked Family History: Reviewed & Not Pertinent - Past Medical History Cardiac Medical History: Reports: Hx Hypertension - H/O, NO MEDS CURRENTLY Pulmonary Medical History: Reports: Hx Asthma, Hx Bronchitis, Hx COPD - USES INHALERS Endocrine Medical History: Reports: Hx Diabetes Mellitus Type 2 GI Medical History: Reports: Hx Gastroesophageal Reflux Disease, Hx Hiatal Hernia Musculoskeltal Medical History: Reports Hx Arthritis - GENERALIZED Infectious Medical History: Reports: Hx C-Diff Past Surgical History: Reports: Hx Appendectomy, Hx Cardiac Surgery, Hx Cholecystectomy, Hx Orthopedic Surgery - Right hip - Immunizations Hx Diphtheria, Pertussis, Tetanus Vaccination: Yes Hx Pneumococcal Vaccination: 03/20/15 <HUMA YANG - Last Filed: 08/28/17 13:28> Review of Systems - Review of Systems Constitutional: See HPI, Weakness EENT: No symptoms reported Cardiovascular: No symptoms reported Respiratory: See HPI, Cough Gastrointestinal: No symptoms reported Genitourinary: No symptoms reported Female Genitourinary: No symptoms reported Musculoskeletal: No symptoms reported Skin: No symptoms reported Hematologic/Lymphatic: No symptoms reported Neurological/Psychological: No symptoms reported -: Yes All other systems reviewed and negative <HUMA YANG Last Filed: 08/28/17 13:28> Physical Exam - General General appearance: Appears well, Alert, Other - Hypertensive In distress: None - HEENT Head: Normocephalic, Atraumatic Eyes: Normal Conjunctiva: Normal Extraocular movements intact: Yes Pupils: PERRL Mucous membranes: Normal Neck: Normal - Respiratory Respiratory status: No respiratory distress Chest status: Nontender Breath sounds: Rhonchi, Wheezing Chest palpation: Normal - Cardiovascular Rhythm: Regular Heart sounds: Normal auscultation Murmur: No Friction rub: No Gallop: None auscultated - Abdominal Inspection: Normal - Back Back: Normal - Extremities General upper extremity: Normal ROM General lower extremity: Normal ROM Wrist: Other - Dorsal aspect of right radial wrist has a 1 1/2 cm skin tear. - Neurological Neuro grossly intact: Yes Cognition: Normal Orientation: AAOx4 [place] Coma Scale Eye Opening: Spontaneous [place] Coma Scale Verbal: Oriented [place] Coma Scale Motor: Obeys Commands [place] Coma Scale Total: 15 Speech: Normal - Psychological Associated symptoms: Normal affect, Normal mood - Skin Skin Temperature: Warm Skin Moisture: Dry Skin Color: Normal <HUMA YANG Last Filed: 08/28/17 13:28> - Vital signs Vitals: Temp Resp Pulse Ox 98.2 F 20 92 08/28/17 10:26 08/28/17 10:26 08/28/17 10:26 Course - Laboratory Result Diagrams: 08/28/17 10:50 08/28/17 10:50 <HUMA YANG - Last Filed: 08/28/17 13:28> - Laboratory Result Diagrams: 08/28/17 10:50 08/28/17 10:50 - Diagnostic Test Radiology reviewed: Image reviewed, Reports reviewed - Chest x-ray suggests left basilar infiltrate. - EKG Interpretation by Sd EKG shows normal: Sinus rhythm, [place], QRS Complexes. abnormal: Intervals - Prolonged QT interval, ST-T Waves - Borderline T abnormalities Rate: Normal - 77 Rhythm: NSR, PVC's - Consults Dr. Dumont Time consulted: 13:35 Consulted provider: will see as inpatient <RICARDO TORREZ - Last Filed: 08/28/17 13:36> - Vital Signs Vital signs: Temp Pulse Resp BP Pulse Ox 98.2 F 22 H 155/69 H 91 L 08/28/17 10:26 08/28/17 13:20 08/28/17 13:20 08/28/17 13:20 - Laboratory Laboratory results interpreted by me: 08/28/17 08/28/17 10:50 10:50 RDW 14.1 H Sodium 146.1 H Carbon Dioxide 31 H Creatine Kinase < 20 L Discharge <HUMA YANG - Last Filed: 08/28/17 13:28> - Discharge Admitting Provider: [facility] Admitted: Telemetry <RICARDO TORREZ - Last Filed: 08/28/17 13:36> - Discharge Clinical Impression: Weakness, Productive cough Pneumonia Qualifiers: Pneumonia type: due to unspecified organism Laterality: left Lung location: lower lobe of lung Qualified Code(s): J18.1 - Lobar pneumonia, unspecified organism Condition: Stable Disposition: ADMITTED INPATIENT Referrals: ERIKA DUMONT MD [Primary Care Provider] - Follow up as needed Scribe Attestation: 08/28/17 11:34 I personally performed the services described in the documentation, reviewed and edited the documentation which was dictated to the scribe in my presence, and it accurately records my words and actions. (RICARDO TORREZ) Scribe Documentation - Scribe Written by Scribe:: Joseph Preston, 08/28/2017 10:54 acting as scribe for :: Lore <HUMA YANG - Last Filed: 08/28/17 13:28>
--- NOTE | 2017-08-28 11:16 | RADIOLOGY REPORT (SQ) ---
EXAM DESCRIPTION: CHEST SINGLE VIEW COMPLETED DATE/TIME: 08/28/2017 10:59 am REASON FOR STUDY: Weakness, congestion, productive cough COMPARISON: 07/28/2017 EXAM PARAMETERS: NUMBER OF VIEWS: One view. TECHNIQUE: Single frontal radiographic view of the chest acquired. RADIATION DOSE: NA LIMITATIONS: None. FINDINGS: LUNGS AND PLEURA: There is increased opacification in the retrocardiac area. Portions of the left hemidiaphragm are indistinct. Possible small left pleural effusion. MEDIASTINUM AND HILAR STRUCTURES: No masses. Contour normal. HEART AND VASCULAR STRUCTURES: Heart normal in size. Normal vasculature. BONES: No acute findings. HARDWARE: None in the chest. OTHER: No other significant finding. IMPRESSION: Left lower lobe pneumonia. TECHNICAL DOCUMENTATION: JOB ID: [id number] [employer]- All Rights Reserved Reading location - IP/workstation name: [email or web address]
[2017-08-28 11:18] LABS: ABSOLUTE EOSINOPHILS # (AUTO) 0.1 10^3/uL (0.0-0.6); ABSOLUTE LYMPHOCYTES (AUTO) 1.6 10^3/uL (0.5-4.7); ABSOLUTE MONOCYTES (AUTO) 0.4 10^3/uL (0.1-1.4); ABSOLUTE NEUT (AUTO) 3.5 10^3/uL (1.7-8.2); BASOPHILS % (AUTO) 0.2 % (0-2); EOSINOPHILS % (AUTO) 1.5 % (0-6); HEMATOCRIT 38.7 % (36.0-47.0); HEMOGLOBIN 12.8 g/dL (12.0-15.5); LYMPHOCYTES % (AUTO) 28.1 % (13-45); MEAN CORPUSCULAR HEMOGLOBIN 29.6 pg (27.0-33.4); MEAN CORPUSCULAR VOLUME 90 fl (80-97); PLATELET COUNT 217 10^3/uL (150-450); RED BLOOD COUNT 4.32 10^6/uL (3.72-5.28); RED CELL DISTRIBUTION WIDTH 14.1 % (11.5-14.0); SEGMENTED NEUTROPHILS % (AUTO) 62.2 % (42-78); TOTAL CELLS COUNTED % (AUTO) 100 %; WHITE BLOOD COUNT 5.6 10^3/uL (4.0-10.5)
[2017-08-28 11:39] LABS: APPEARANCE,URINE CLEAR; BILIRUBIN,URINE NEGATIVE (NEGATIVE); COLOR,URINE YELLOW; GLUCOSE, URINE NEGATIVE (NEGATIVE); KETONES,URINE NEGATIVE (NEGATIVE); LEUKOCYTE ESTERASE,URINE NEGATIVE (NEGATIVE); NITRITE,URINE NEGATIVE (NEGATIVE); PROTEIN,URINE NEGATIVE (NEGATIVE); URINE SPECIFIC GRAVITY 1.011; UROBILINOGEN,URINE NEGATIVE mg/dL (<2.0)
[2017-08-28 11:49] LABS: ALANINE AMINOTRANSFERASE 13 U/L (9-52); ALBUMIN 3.9 g/dL (3.5-5.0); ALKALINE PHOSPHATASE 59 U/L (38-126); ANION GAP 9 (5-19); ASPARTATE AMINO TRANSFERASE 20 U/L (14-36); BILIRUBIN,DIRECT 0.3 mg/dL (0.0-0.4); BILIRUBIN,TOTAL 0.5 mg/dL (0.2-1.3); BLOOD UREA NITROGEN 18 mg/dL (7-20); CALCIUM 9.4 mg/dL (8.4-10.2); CARBON DIOXIDE 31 mmol/L (22-30); CHLORIDE 106 mmol/L (98-107); GLUCOSE 88 mg/dL (75-110); POTASSIUM 3.8 mmol/L (3.6-5.0); SODIUM 146.1 mmol/L (137-145); TOTAL PROTEIN 6.3 g/dL (6.3-8.2)
[2017-08-28 11:50] LABS: CREATINE KINASE < 20 U/L (30-135)
--- NOTE | 2017-08-28 12:46 | RADIOLOGY REPORT (SQ) ---
EXAM DESCRIPTION: CHEST 2 VIEWS COMPLETED DATE/TIME: 08/28/2017 12:35 pm REASON FOR STUDY: New left lower lobe infiltrate COMPARISON: Two-view chest 04/22/2017, 03/08/2017 AP chest films 05/31/2017, 07/28/2017, 08/28/2017 EXAM PARAMETERS: NUMBER OF VIEWS: two views TECHNIQUE: Digital Frontal and Lateral radiographic views of the chest acquired. RADIATION DOSE: NA LIMITATIONS: none FINDINGS: LUNGS AND PLEURA: There is bandlike airspace disease just above the left hemidiaphragm ate lectasis versus pneumonia. This is similar compared to 08/28/2017, 1057 hours. Right lung well inflated and clear. No right or left pleural effusion. No pneumothorax. MEDIASTINUM AND HILAR STRUCTURES: No masses or contour abnormalities. HEART AND VASCULAR STRUCTURES: Heart normal size. No evidence for failure. BONES: Osteoporotic. No acute thoracic compression deformity HARDWARE: Clips right upper quadrant post cholecystectomy OTHER: No other significant finding. IMPRESSION: Left basilar airspace disease atelectasis versus pneumonia TECHNICAL DOCUMENTATION: JOB ID: [id number] [employer]- All Rights Reserved Reading location - IP/workstation name: [email or web address]
[2017-08-28] MEDS ORDERED: LEVOFLOXACIN 750 MG/D5W RTU 750 MG/150 ML RTUPB IV ONE (13:08)
[2017-08-28] MEDS ORDERED: ALBUTEROL SULFATE 0.083% NEB 2.5 MG/3 ML AMPUL NEB ONE (13:45)
[2017-08-28] MEDS ORDERED: ACETAMINOPHEN 325 MG TABLET ONE (17:34)
--- NOTE | 2017-08-28 18:21 | EKG REPORT ---
SEVERITY:- BORDERLINE ECG - SINUS RHYTHM VENTRICULAR PREMATURE COMPLEX BORDERLINE T WAVE ABNORMALITIES BORDERLINE PROLONGED QT INTERVAL : Confirmed by: Jerson Blackwood MD 28-Aug-2017 18:21:14
--- NOTE | 2017-08-28 18:31 | PDOC H&P ---
History of Present Illness Admission Date/PCP: 08/28/17 13:47 [facility] [place] Patient complains of: Generalized weakness, cough and chest congestion History of Present Illness: JASON SWEET is a 87 year old female known to my practice who presented to the ED with complain of generalized weakness, productive cough and chest congestion for 2 weeks duration. She described sputum as greenish and mucoid in character. She reported difficulty with expectoration and associated nausea. There is associated chest pain with coughing. She denied palpitation. No abdominal pain. She reported nausea but no vomiting. She described her generalized weakness as severe and to the point that she was not able to stand on her feet. There is associated loss of appetite and po intake. She denied any diarrhea. No recent fall she ambulate with walker assistance when ambulatory. Her morbidities include Parkinsonism, hypotension secondary to her Parkinsonism medication, Hypertension, Diabetes Mellitus Type 2, Asthma, COPD, GERD, Hiatus hernia, and osteoarthritis. Her initial evaluation in the ED was significant for abnormal chest X ray findings suggestive if possible left lower lobe pneumonia and elevated blood pressure related to Florinef usage. Past Medical History Cardiac Medical History: Reports: Hypertension - H/O, NO MEDS CURRENTLY Denies: Coronary Artery Disease, Myocardial Infarction Pulmonary Medical History: Reports: Asthma, Bronchitis, Chronic Obstructive Pulmonary Disease (COPD) - USES INHALERS Denies: Pneumonia Neurological Medical History: Denies: Seizures Endocrine Medical History: Reports: Diabetes Mellitus Type 2 GI Medical History: Reports: Gastroesophageal Reflux Disease, Hiatal Hernia Musculoskeltal Medical History: Reports: Arthritis - GENERALIZED Psychiatric Medical History: Denies: Depression Hematology: Reports: Anemia Infectious Medical History: Reports: Clostridium Difficile Past Surgical History Past Surgical History: Reports: Appendectomy, Cholecystectomy, Orthopedic Surgery - Right hip Social History Smoking Status: Former Smoker Cigarettes Packs Per Day: 2.5 Cigars Per Day: 0 Pipes Per Day: 0 Number of Years Smokin Last Time Smoked: 03/20/1977 Frequency of Alcohol Use: Rare Hx Recreational Drug Use: No Drugs: None Hx Prescription Drug Abuse: No Family History Family History: Reviewed & Not Pertinent Parental Family History Reviewed: Yes Children Family History Reviewed: Yes Sibling(s) Family History Reviewed.: Yes Medication/Allergy Home Medications: Albuterol Sulfate [Albuterol Sulfate 2.5mg/3 mL] 1 vial IH TIDP PRN 08/28/17 Albuterol Sulfate [Ventolin Hfa] 2 puff IH Q4HP PRN 08/28/17 Aspirin [Aspirin 81 mg Chewable Tablet] 81 mg PO DAILY 08/28/17 Biotin [Biotin 5 mg Tablet] 5 mg PO TID 08/28/17 Calcium Carbonate/Vitamin D3 [Calcium 600 + Vit D Tablet] 1 tab PO DAILY Carbidopa/Levodopa [Sinemet 25-100 mg Tablet] 1 each PO TID 08/28/17 Carbidopa/Levodopa [Sinemet Cr 25-100 Tablet] 1 tab PO [id number] PRN 08/28/17 Carbidopa/Levodopa [Sinemet Cr 25-100 Tablet] 1 tab PO ACLUNCH 08/28/17 Carbidopa/Levodopa [Sinemet Cr 25-100 Tablet] 2 tab PO Q4PM 08/28/17 Cyclosporine [Restasis] 1 drop OU BID 08/28/17 Diclofenac Epolamine [Flector] 1 each TD Q12 PRN 08/28/17 Fludrocortisone Acetate [Florinef 0.1 mg Tablet] 0.1 mg PO DAILY 08/28/17 Fluticasone Propionate [Flonase Nasal Stow 50 Mcg/Stow 16 gm] 2 sprays NASL DAILY 08/28/17 Fluticasone/Salmeterol [Advair 250-50 Diskus 28 dose] 1 inh IH Q12H 08/28/17 Multivit-Min/Iron/Folic/Lutein [Centrum Silver Women Tablet] 1 each PO DAILY 02/04 Omeprazole 20 mg PO DAILY 08/28/17 Raloxifene HCl [Evista 60 mg Tablet] 60 mg PO DAILY 08/28/17 Rasagiline Mesylate [Azilect 1 mg Tablet] 1 mg PO DAILY 08/28/17 Rosuvastatin Calcium [Crestor 5 mg Tablet] 5 mg PO QHS 08/28/17 Allergies/Adverse Reactions: simvastatin Adverse Reaction (Verified 08/28/17 10:29) Review of Systems Constitutional: PRESENT: anorexia, weakness Eyes: ABSENT: visual disturbances Ears: ABSENT: hearing changes Nose, Mouth, and Throat: ABSENT: as per HPI, headache(s), mouth pain, sore throat, vertigo, other Cardiovascular: PRESENT: chest pain - with coughing. ABSENT: as per HPI, dyspnea on exertion, edema, orthropnea, palpitations, other Respiratory: PRESENT: cough, sputum. ABSENT: as per HPI, dyspnea, hemoptysis, other Gastrointestinal: PRESENT: nausea. ABSENT: as per HPI, abdominal pain, bloating , coffee ground emesis, constipation, diarrhea, dysphagia, heartburn, hematemesis, hematochezia, melena, vomiting, other Genitourinary: ABSENT: dysuria, hematuria Musculoskeletal: PRESENT: deformity - related to joint involvement with arthritis Integumentary: ABSENT: rash, wounds Neurological: PRESENT: weakness - generalized. ABSENT: abnormal gait, abnormal speech, confusion, dizziness, focal weakness, syncope Psychiatric: ABSENT: anxiety, depression, homidical ideation, suicidal ideation Endocrine: ABSENT: cold intolerance, heat intolerance, polydipsia, polyuria Hematologic/Lymphatic: ABSENT: easy bleeding, easy bruising, lymphadenopathy Allergic/Immunologic: ABSENT: seasonal rhinorrhea Physical Exam Vital Signs: Temp Pulse Resp BP Pulse Ox 98.2 F 108 H 18 118/57 L 96 08/28/17 15:51 08/28/17 15:51 08/28/17 15:51 08/28/17 15:51 08/28/17 15:51 Intake & Output 08/27/17 08/28/17 08/29/17 06:59 06:59 06:59 Weight 59.5 kg General appearance: PRESENT: no acute distress Head exam: PRESENT: atraumatic, normocephalic Eye exam: PRESENT: conjunctiva pink, EOMI, PERRLA. ABSENT: scleral icterus Ear exam: PRESENT: normal external ear exam Mouth exam: PRESENT: moist, tongue midline Teeth exam: ABSENT: dental caries, dental tenderness, edentulous, poor dentation , other Throat exam: ABSENT: post pharyngeal erythema, tonsillar erythema, tonsillar exudate, tonsillogmegaly, other Neck exam: PRESENT: full ROM. ABSENT: carotid bruit, JVD, lymphadenopathy, thyromegaly Respiratory exam: PRESENT: crackles - left lower lobe posteriorly, decreased breath sounds - at lung bases Cardiovascular exam: PRESENT: RRR. ABSENT: diastolic murmur, rubs, systolic murmur Pulses: PRESENT: +1 pedal pulses bilateral Vascular exam: PRESENT: normal capillary refill. ABSENT: pallor GI/Abdominal exam: PRESENT: normal bowel sounds, soft. ABSENT: distended, guarding, mass, organolmegaly, rebound, tenderness Rectal exam: PRESENT: deferred Extremities exam: ABSENT: pedal edema Musculoskeletal exam: PRESENT: deformity - multiple joints involvement in arthritis Neurological exam: PRESENT: alert, awake, oriented to person, oriented to place , oriented to time, oriented to situation, CN II-XII grossly intact. ABSENT: motor sensory deficit Psychiatric exam: PRESENT: appropriate affect, normal mood. ABSENT: homicidal ideation, suicidal ideation Skin exam: PRESENT: dry, rash, skin tears - right wrist region, warm Results Impressions: Chest X-Ray 08/28/17 12:11 IMPRESSION: Left basilar airspace disease atelectasis versus pneumonia Assessment & Plan - Diagnosis (1) Left lower lobe pneumonia Qualifiers: Aspiration pneumonia type: unspecified Is this a current diagnosis for this admission?: Yes Plan: See admitting attending physician orders. (2) Senile debility Is this a current diagnosis for this admission?: Yes Plan: See admitting attending physician orders. (3) Parkinsonism Qualifiers: Parkinsonism type: Parkinson's disease Qualified Code(s): G20 - Parkinson' s disease Is this a current diagnosis for this admission?: Yes Plan: See admitting attending physician orders. 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 (5) HTN (hypertension) Qualifiers: Hypertension type: essential hypertension Qualified Code(s): I10 - Essential (primary) hypertension Is this a current diagnosis for this admission?: Yes Plan: See admitting attending physician orders. (6) Diabetes mellitus type 2, diet-controlled Is this a current diagnosis for this admission?: Yes Plan: See admitting attending physician orders. (7) COPD (chronic obstructive pulmonary disease) Qualifiers: COPD type: unspecified COPD Qualified Code(s): J44.9 - Chronic obstructive pulmonary disease, unspecified Is this a current diagnosis for this admission?: Yes Plan: See admitting attending physician orders. (8) GERD (gastroesophageal reflux disease) Qualifiers: Esophagitis presence: without esophagitis Qualified Code(s): K21.9 - Gastro -esophageal reflux disease without esophagitis Is this a current diagnosis for this admission?: Yes Plan: See admitting attending physician orders. (9) Asthma Qualifiers: Asthma severity: mild Is this a current diagnosis for this admission?: Yes Plan: See admitting attending physician orders. (10) Osteoarthritis involving multiple joints on both sides of body Is this a current diagnosis for this admission?: Yes Plan: See admitting attending physician orders. 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 - Time Time Spent: 50 to 70 Minutes Medications reviewed and adjusted accordingly: Yes Anticipated discharge: SNF Within: Other - Inpatient Certification Based on my medical assessment, after consideration of the patient's comorbidities, presenting symptoms, or acuity I expect that the services needed warrant INPATIENT care.: Yes I certify that my determination is in accordance with my understanding of Medicare's requirements for reasonable and necessary INPATIENT services [42 CFR 412.3e].: Yes Medical Necessity: Need Close Monitoring Due to Risk of Patient Decompensation, Need For IV Fluids, Need For Continuous Telemetry Monitoring, Need for Nebulizer Therapy and Monitoring of Response, Need for IV Antibiotics, Risk of Complication if Not Cared For in Hospital Post Hospital Care: D/C or Transfer Summary - Plan Summary Plan Summary: See admitting attending physician orders.
[2017-08-28] MEDS ORDERED: INSULIN LISPRO 100 UNIT/ML 3 ML VIAL SUBCUT PRN (18:34)
[2017-08-28] MEDS ORDERED: DEXTROSE 50%-WATER 25 GM/50 ML DISP.SYRIN IV PRN ×2 (18:34)
[2017-08-28] MEDS ORDERED: DEXTROSE 40% GEL 15 GM TUBE PO PRN ×2 (18:34)
[2017-08-28] MEDS ORDERED: GLUCAGON,HUMAN RECOMB 1 MG INJ IM PRN (18:34)
[2017-08-28] MEDS ORDERED: DICLOFENAC EPOLAMINE TD PRN (18:36)
[2017-08-28 19:11] LABS: INTERNATIONAL RATION (INR) 0.99; PROTHROMBIN TIME 13.6 SEC (11.4-15.4)
[2017-08-28 19:12] LABS: PARTIAL THROMBOPLASTIN TIME 27.4 SEC (23.5-35.8)
[2017-08-28] MEDS ORDERED: ENOXAPARIN SODIUM INJ 40 MG/0.4 ML DISP.SYRIN SUBCUT ONE (21:00)
[2017-08-28] MEDS: NORMAL SALINE 1000 ML 1,000 ML IV PRN (21:11)
[2017-08-28] MEDS: ATORVASTATIN CALCIUM 10 MG TABLET PO SCH (21:12)
[2017-08-28] MEDS ORDERED: (PENDING PHARMACY ID) (Rosuvastatin Calcium [Crestor 5 Mg Tablet] 5 MG) PO SCH (22:00)
[2017-08-28] MEDS: FLUTICASONE/SALMETEROL DISKUS 250-50 MCG/DOSE IH SCH (23:42)
[2017-08-29] MEDS: LANSOPRAZOLE 30 MG TAB.RAP.DR PO SCH (06:16)
[2017-08-29 06:55] LABS: ABSOLUTE EOSINOPHILS # (AUTO) 0.1 10^3/uL (0.0-0.6); ABSOLUTE LYMPHOCYTES (AUTO) 1.7 10^3/uL (0.5-4.7); ABSOLUTE MONOCYTES (AUTO) 0.5 10^3/uL (0.1-1.4); ABSOLUTE NEUT (AUTO) 3.2 10^3/uL (1.7-8.2); BASOPHILS % (AUTO) 0.4 % (0-2); EOSINOPHILS % (AUTO) 1.6 % (0-6); HEMATOCRIT 34.4 % (36.0-47.0); HEMOGLOBIN 11.4 g/dL (12.0-15.5); LYMPHOCYTES % (AUTO) 30.8 % (13-45); MEAN CORPUSCULAR HEMOGLOBIN 29.8 pg (27.0-33.4); MEAN CORPUSCULAR HGB CONC 33.2 g/dL (32.0-36.0); MEAN CORPUSCULAR VOLUME 90 fl (80-97); MONOCYTES % (AUTO) 9.5 % (3-13); PLATELET COUNT 178 10^3/uL (150-450); RED BLOOD COUNT 3.84 10^6/uL (3.72-5.28); SEGMENTED NEUTROPHILS % (AUTO) 57.7 % (42-78); TOTAL CELLS COUNTED % (AUTO) 100 %; WHITE BLOOD COUNT 5.5 10^3/uL (4.0-10.5)
[2017-08-29 07:30] LABS: ALANINE AMINOTRANSFERASE 16 U/L (9-52); ALBUMIN 3.1 g/dL (3.5-5.0); ALKALINE PHOSPHATASE 44 U/L (38-126); ANION GAP 7 (5-19); ASPARTATE AMINO TRANSFERASE 17 U/L (14-36); BILIRUBIN,DIRECT 0.1 mg/dL (0.0-0.4); BILIRUBIN,TOTAL 0.5 mg/dL (0.2-1.3); BLOOD UREA NITROGEN 14 mg/dL (7-20); CALCIUM 9.1 mg/dL (8.4-10.2); CARBON DIOXIDE 29 mmol/L (22-30); CHLORIDE 108 mmol/L (98-107); GLUCOSE 74 mg/dL (75-110); POTASSIUM 4.2 mmol/L (3.6-5.0); SODIUM 144.3 mmol/L (137-145); TOTAL PROTEIN 5.4 g/dL (6.3-8.2)
--- NOTE | 2017-08-29 07:53 | PDOC PROGRESS REPORT ---
Subjective Progress Note for:: 08/29/17 Subjective:: She denied any chest pain or difficulty with breathing. No fever or chills. N o abdominal pain, nausea or vomiting. Emphasized need for adequate po intake. Reason For Visit: LEFT LOWER LOBE PNEUMONIA, SALE DEBILITY, HTN, Physical Exam Vital Signs: Temp Pulse Resp BP Pulse Ox 97.9 F 84 19 124/94 H 99 08/29/17 04:30 08/29/17 07:00 08/29/17 04:30 08/29/17 04:30 08/29/17 04:30 Intake & Output 08/28/17 08/29/17 08/30/17 06:59 06:59 06:59 Intake Total 1017 Balance 1017 Weight 59.8 kg General appearance: PRESENT: no acute distress, well-developed, well-nourished Head exam: PRESENT: atraumatic, normocephalic Mouth exam: PRESENT: moist Respiratory exam: PRESENT: clear to auscultation mary kate, decreased breath sounds - at lung bases Cardiovascular exam: PRESENT: RRR. ABSENT: diastolic murmur, rubs, systolic murmur Vascular exam: ABSENT: pallor GI/Abdominal exam: PRESENT: normal bowel sounds, soft. ABSENT: distended, guarding, mass, organolmegaly, rebound, tenderness Extremities exam: ABSENT: pedal edema Musculoskeletal exam: PRESENT: deformity - related to multiple joint involverment with arthritis Neurological exam: PRESENT: alert, awake, oriented to person, oriented to place , oriented to time, oriented to situation, CN II-XII grossly intact. ABSENT: motor sensory deficit Psychiatric exam: PRESENT: appropriate affect, normal mood. ABSENT: homicidal ideation, suicidal ideation Skin exam: PRESENT: dry, warm Results Laboratory Results: 08/29/17 05:36 08/29/17 05:36 08/29/17 08/29/17 05:36 05:36 WBC 5.5 RBC 3.84 Hgb 11.4 L Hct 34.4 L MCV 90 MCH 29.8 MCHC 33.2 RDW 14.0 Plt Count 178 Seg Neutrophils % 57.7 Lymphocytes % 30.8 Monocytes % 9.5 Eosinophils % 1.6 Basophils % 0.4 Absolute Neutrophils 3.2 Absolute Lymphocytes 1.7 Absolute Monocytes 0.5 Absolute Eosinophils 0.1 Absolute Basophils 0.0 Sodium 144.3 Potassium 4.2 Chloride 108 H Carbon Dioxide 29 Anion Gap 7 BUN 14 Creatinine 0.59 Est GFR ( Amer) > 60 Est GFR (Non-Af Amer) > 60 Glucose 74 L Calcium 9.1 Total Bilirubin 0.5 AST 17 ALT 16 Alkaline Phosphatase 44 Total Protein 5.4 L Albumin 3.1 L Impressions: Chest X-Ray 08/28/17 12:11 IMPRESSION: Left basilar airspace disease atelectasis versus pneumonia Assessment & Plan - Diagnosis (1) Left lower lobe pneumonia Qualifiers: Aspiration pneumonia type: unspecified Is this a current diagnosis for this admission?: Yes (2) Senile debility Is this a current diagnosis for this admission?: Yes (3) Parkinsonism Qualifiers: Parkinsonism type: Parkinson's disease Qualified Code(s): G20 - Parkinson' s disease Is this a current diagnosis for this admission?: Yes (4) 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 Is this a current diagnosis for this admission?: Yes (5) HTN (hypertension) Qualifiers: Hypertension type: essential hypertension Qualified Code(s): I10 - Essential (primary) hypertension Is this a current diagnosis for this admission?: Yes (6) Diabetes mellitus type 2, diet-controlled Is this a current diagnosis for this admission?: Yes (7) COPD (chronic obstructive pulmonary disease) Qualifiers: COPD type: unspecified COPD Qualified Code(s): J44.9 - Chronic obstructive pulmonary disease, unspecified Is this a current diagnosis for this admission?: Yes (8) GERD (gastroesophageal reflux disease) Qualifiers: Esophagitis presence: without esophagitis Qualified Code(s): K21.9 - Gastro -esophageal reflux disease without esophagitis Is this a current diagnosis for this admission?: Yes (9) Asthma Qualifiers: Asthma severity: mild Is this a current diagnosis for this admission?: Yes (10) Osteoarthritis involving multiple joints on both sides of body Is this a current diagnosis for this admission?: Yes (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 Is this a current diagnosis for this admission?: Yes - Time Time Spent with patient: 25-34 minutes Medications reviewed and adjusted accordingly: Yes Anticipated discharge: SNF Within: Other - Inpatient Certification Based on my medical assessment, after consideration of the patient's comorbidities, presenting symptoms, or acuity I expect that the services needed warrant INPATIENT care.: Yes I certify that my determination is in accordance with my understanding of Medicare's requirements for reasonable and necessary INPATIENT services [42 CFR 412.3e].: Yes Medical Necessity: Need Close Monitoring Due to Risk of Patient Decompensation, Need For IV Fluids, Need For Continuous Telemetry Monitoring, Need for IV Antibiotics, Risk of Complication if Not Cared For in Hospital Post Hospital Care: D/C or Transfer Summary - Plan Summary Plan Summary: Continue current antibiotic coverage. Physical therapy evaluation. Family and patient expressed interest in acute rehab upon discharge.
[2017-08-29] MEDS ORDERED: CARBIDOPA/LEVODOPA 25-100 MG TABLET PO SCH ×2 (08:00→18:00)
[2017-08-29] MEDS: ASPIRIN 81 MG TABLET, CHEWABLE PO SCH (09:52)
[2017-08-29] MEDS: MULTIVITAMIN TABLET PO SCH (09:52)
[2017-08-29] MEDS: CALCIUM CARBONATE 250 MG/VITAMIN D3 125 UNIT TABLET PO SCH (09:52)
[2017-08-29] MEDS: CYCLOSPORINE 0.05% OPH EMULSIO 0.4 ML DROPERETTE OU SCH ×2 (09:53→18:47)
[2017-08-29] MEDS: ENOXAPARIN SODIUM INJ 40 MG/0.4 ML DISP.SYRIN SUBCUT SCH (09:53)
[2017-08-29] MEDS: FLUTICASONE NASAL SPRAY 50 MCG/SPRY 120 SPRAY/16 GM NASL SCH (09:55)
[2017-08-29] MEDS: FLUTICASONE/SALMETEROL DISKUS 250-50 MCG/DOSE IH SCH ×2 (09:55→22:37)
[2017-08-29] MEDS: RALOXIFENE HCL 60 MG TABLET PO SCH (09:55)
[2017-08-29] MEDS: LEVOFLOXACIN 500 MG/D5W RTU 500 MG/100 ML RTUPB IV SCH (09:55)
[2017-08-29] MEDS ORDERED: FLUDROCORTISONE ACETATE 0.1 MG TABLET PO SCH (10:00)
[2017-08-29] MEDS ORDERED: BIOTIN 5 MG PO SCH (10:00)
[2017-08-29] MEDS ORDERED: RASAGILINE MESYLATE 1 MG PO SCH (10:00)
[2017-08-29] MEDS ORDERED: CARBIDOPA PO SCH ×2 (11:00→16:00)
[2017-08-29] MEDS ORDERED: LEVODOPA PO SCH ×2 (11:00→16:00)
--- NOTE | 2017-08-29 14:05 | Physician Advisory Note ---
Physician Advisor ProgressNote .: Pursuant to the plan for [facility], I have reviewed the medical record for this patient. Physician Advisor Statement: Please state most likely type of pneumonia - gram+? gram neg? - If you suspect aspiration pneumonia, please document explicitly what makes you suspect that: any known choking/aspiration episode? Status: pt 87yo, usually ambulatory w/help, so weak from PNA that she can't even stand, not keeping po intake adequate enough to keep Na WNL. After 1 night of tx, still too weak to take more than 4 steps. Clearly not yet anywhere near back to baseline. appropriate for Inpatient status. Thanks, CK
[2017-08-29] MEDS ORDERED: LISINOPRIL 5 MG TABLET PO ONE (14:45)
[2017-08-29] MEDS: CARBIDOPA/LEVODOPA 25-100 MG TABLET PO SCH (16:01)
[2017-08-29] MEDS: ATORVASTATIN CALCIUM 10 MG TABLET PO SCH (22:37)
[2017-08-30] MEDS: LANSOPRAZOLE 30 MG TAB.RAP.DR PO SCH (04:54)
--- NOTE | 2017-08-30 07:41 | PDOC PROGRESS REPORT ---
Subjective Progress Note for:: 08/30/17 Subjective:: She denied any chest pain or difficulty with breathing. No reported fever or chills. No abdominal pain, nausea, or vomiting. Reason For Visit: LEFT LOWER LOBE PNEUMONIA, SENILE DEBILITY, HTN, Physical Exam Vital Signs: Temp Pulse Resp BP Pulse Ox 98.2 F 80 19 166/59 H 100 08/29/17 19:36 08/30/17 07:00 08/29/17 19:36 08/30/17 03:58 08/30/17 00:08 Intake & Output 08/29/17 08/30/17 08/31/17 06:59 06:59 06:59 Intake Total 1017 2384 Balance 1017 2384 Weight 59.8 kg 59.9 kg Physical Exam: General appearance: PRESENT: no acute distress, well-developed, well-nourished Head exam: PRESENT: atraumatic, normocephalic Mouth exam: PRESENT: moist Respiratory exam: PRESENT: clear to auscultation mary kate, decreased breath sounds - at lung bases Cardiovascular exam: PRESENT: RRR. ABSENT: diastolic murmur, rubs, systolic murmur Vascular exam: ABSENT: pallor GI/Abdominal exam: PRESENT: normal bowel sounds, soft. ABSENT: distended, guarding, mass, organomegaly, rebound, tenderness Extremities exam: ABSENT: pedal edema Musculoskeletal exam: PRESENT: deformity - related to multiple joint involvement with arthritis Neurological exam: PRESENT: alert, awake, oriented to person, oriented to place , oriented to time, oriented to situation, CN II-XII grossly intact. ABSENT: motor sensory deficit Psychiatric exam: PRESENT: appropriate affect, normal mood. Skin exam: PRESENT: dry, warm Results Laboratory Results: 08/29/17 05:36 08/29/17 05:36 Impressions: Chest X-Ray 08/28/17 12:11 IMPRESSION: Left basilar airspace disease atelectasis versus pneumonia Assessment & Plan - Diagnosis (1) Left lower lobe pneumonia Qualifiers: Aspiration pneumonia type: unspecified Is this a current diagnosis for this admission?: Yes (2) Senile debility Is this a current diagnosis for this admission?: Yes (3) Parkinsonism Qualifiers: Parkinsonism type: Parkinson's disease Qualified Code(s): G20 - Parkinson' s disease Is this a current diagnosis for this admission?: Yes (4) 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 Is this a current diagnosis for this admission?: Yes (5) HTN (hypertension) Qualifiers: Hypertension type: essential hypertension Qualified Code(s): I10 - Essential (primary) hypertension Is this a current diagnosis for this admission?: Yes (6) Diabetes mellitus type 2, diet-controlled Is this a current diagnosis for this admission?: Yes (7) COPD (chronic obstructive pulmonary disease) Qualifiers: COPD type: unspecified COPD Qualified Code(s): J44.9 - Chronic obstructive pulmonary disease, unspecified Is this a current diagnosis for this admission?: Yes (8) GERD (gastroesophageal reflux disease) Qualifiers: Esophagitis presence: without esophagitis Qualified Code(s): K21.9 - Gastro -esophageal reflux disease without esophagitis Is this a current diagnosis for this admission?: Yes (9) Asthma Qualifiers: Asthma severity: mild Is this a current diagnosis for this admission?: Yes (10) Osteoarthritis involving multiple joints on both sides of body Is this a current diagnosis for this admission?: Yes (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 Is this a current diagnosis for this admission?: Yes - Time Time Spent with patient: 25-34 minutes Medications reviewed and adjusted accordingly: Yes Anticipated discharge: SNF Within: Other - Inpatient Certification Based on my medical assessment, after consideration of the patient's comorbidities, presenting symptoms, or acuity I expect that the services needed warrant INPATIENT care.: Yes I certify that my determination is in accordance with my understanding of Medicare's requirements for reasonable and necessary INPATIENT services [42 CFR 412.3e].: Yes Medical Necessity: Need Close Monitoring Due to Risk of Patient Decompensation, Need For IV Fluids, Need For Continuous Telemetry Monitoring, Need for IV Antibiotics, Risk of Complication if Not Cared For in Hospital Post Hospital Care: D/C or Transfer Summary - Plan Summary Plan Summary: Continue current medication management and physical rehabilitation activities. Follow up on culture findings and SNF placement efforts.
[2017-08-30] MEDS ORDERED: CARBIDOPA PO SCH (08:00)
[2017-08-30] MEDS ORDERED: LEVODOPA PO SCH (08:00)
[2017-08-30] MEDS: ACETAMINOPHEN 325 MG TABLET PO PRN (10:24)
[2017-08-30] MEDS: CARBIDOPA/LEVODOPA 25-100 MG TABLET PO SCH ×3 (10:28→16:48)
[2017-08-30] MEDS: CARBIDOPA PO SCH ×2 (10:31→13:21)
[2017-08-30] MEDS: LEVODOPA PO SCH ×2 (10:31→13:21)
[2017-08-30] MEDS: ENOXAPARIN SODIUM INJ 40 MG/0.4 ML DISP.SYRIN SUBCUT SCH (10:32)
[2017-08-30] MEDS: ASPIRIN 81 MG TABLET, CHEWABLE PO SCH (10:32)
[2017-08-30] MEDS: CALCIUM CARBONATE 250 MG/VITAMIN D3 125 UNIT TABLET PO SCH (10:32)
[2017-08-30] MEDS: FLUDROCORTISONE ACETATE 0.1 MG TABLET PO SCH (10:32)
[2017-08-30] MEDS: CYCLOSPORINE 0.05% OPH EMULSIO 0.4 ML DROPERETTE OU SCH ×2 (10:32→16:50)
[2017-08-30] MEDS: RALOXIFENE HCL 60 MG TABLET PO SCH (10:33)
[2017-08-30] MEDS: FLUTICASONE NASAL SPRAY 50 MCG/SPRY 120 SPRAY/16 GM NASL SCH (10:33)
[2017-08-30] MEDS: LEVOFLOXACIN 500 MG/D5W RTU 500 MG/100 ML RTUPB IV SCH (10:33)
[2017-08-30] MEDS: FLUTICASONE/SALMETEROL DISKUS 250-50 MCG/DOSE IH SCH ×2 (10:33→21:37)
[2017-08-30] MEDS: MULTIVITAMIN TABLET PO SCH (10:33)
[2017-08-30] MEDS ORDERED: LANSOPRAZOLE 30 MG TAB.RAP.DR PO ONE (14:00)
[2017-08-30] MEDS: ATORVASTATIN CALCIUM 10 MG TABLET PO SCH (21:37)
[2017-08-30] MEDS: LEVALBUTEROL HCL NEB 0.63 MG/3 ML AMPUL NEB PRN (23:14)
[2017-08-31] MEDS: LANSOPRAZOLE 30 MG TAB.RAP.DR PO SCH (04:33)
[2017-08-31] MEDS: ACETAMINOPHEN 325 MG TABLET PO PRN (07:46)
[2017-08-31] MEDS: CYCLOSPORINE 0.05% OPH EMULSIO 0.4 ML DROPERETTE OU SCH ×2 (10:30→17:49)
[2017-08-31] MEDS: CARBIDOPA/LEVODOPA 25-100 MG TABLET PO SCH ×3 (10:33→15:40)
[2017-08-31] MEDS: LEVODOPA PO SCH ×2 (10:34→13:53)
[2017-08-31] MEDS: CARBIDOPA PO SCH ×2 (10:34→13:53)
[2017-08-31] MEDS: FLUTICASONE/SALMETEROL DISKUS 250-50 MCG/DOSE IH SCH ×2 (10:35→21:35)
[2017-08-31] MEDS: FLUDROCORTISONE ACETATE 0.1 MG TABLET PO SCH (10:35)
[2017-08-31] MEDS: FLUTICASONE NASAL SPRAY 50 MCG/SPRY 120 SPRAY/16 GM NASL SCH (10:36)
[2017-08-31] MEDS: NORMAL SALINE 1000 ML 1,000 ML IV PRN (10:47)
[2017-08-31] MEDS: ASPIRIN 81 MG TABLET, CHEWABLE PO SCH (10:48)
[2017-08-31] MEDS: ENOXAPARIN SODIUM INJ 40 MG/0.4 ML DISP.SYRIN SUBCUT SCH (10:49)
[2017-08-31] MEDS: LEVOFLOXACIN 500 MG TABLET PO SCH (10:56)
[2017-08-31] MEDS: CALCIUM CARBONATE 250 MG/VITAMIN D3 125 UNIT TABLET PO SCH (10:57)
[2017-08-31] MEDS: MULTIVITAMIN TABLET PO SCH (10:59)
[2017-08-31] MEDS: RALOXIFENE HCL 60 MG TABLET PO SCH (10:59)
[2017-08-31] MEDS: LEVALBUTEROL HCL NEB 0.63 MG/3 ML AMPUL NEB PRN (11:17)
--- NOTE | 2017-08-31 17:45 | PDOC PROGRESS REPORT ---
Subjective Progress Note for:: 08/31/17 Subjective:: Out of bed in chair. She denied any chest pain or difficulty with breathing. No reported fever or chills. No abdominal pain, nausea, or vomiting. She participated in inhouse physical therapy session today with good effort. Patient and daughter agreed to DNR status Reason For Visit: LEFT LOWER LOBE PNEUMONIA, SENILE DEBILITY, HTN, Physical Exam Vital Signs: Temp Pulse Resp BP Pulse Ox 98.5 F 73 17 143/65 H 92 08/31/17 15:06 08/31/17 15:06 08/31/17 15:06 08/31/17 15:06 08/31/17 15:06 Intake & Output 08/30/17 08/31/17 09/01/17 06:59 06:59 06:59 Intake Total 2384 1453 Balance 2384 1453 Weight 59.9 kg 53.4 kg Physical Exam: General appearance: PRESENT: no acute distress, well-developed, well-nourished Head exam: PRESENT: atraumatic, normocephalic Mouth exam: PRESENT: moist Respiratory exam: PRESENT: clear to auscultation mary kate, decreased breath sounds - at lung bases Cardiovascular exam: PRESENT: RRR. ABSENT: diastolic murmur, rubs, systolic murmur Vascular exam: ABSENT: pallor GI/Abdominal exam: PRESENT: normal bowel sounds, soft. ABSENT: distended, guarding, mass, organomegaly, rebound, tenderness Extremities exam: ABSENT: pedal edema Musculoskeletal exam: PRESENT: deformity - related to multiple joint involvement with arthritis Neurological exam: PRESENT: alert, awake, oriented to person, oriented to place , oriented to time, oriented to situation, CN II-XII grossly intact. ABSENT: motor sensory deficit Psychiatric exam: PRESENT: appropriate affect, normal mood. Skin exam: PRESENT: dry, warm Results Laboratory Results: 08/29/17 05:36 08/29/17 05:36 Impressions: Chest X-Ray 08/28/17 12:11 IMPRESSION: Left basilar airspace disease atelectasis versus pneumonia Assessment & Plan - Diagnosis (1) Left lower lobe pneumonia Qualifiers: Aspiration pneumonia type: unspecified Is this a current diagnosis for this admission?: Yes (2) Senile debility Is this a current diagnosis for this admission?: Yes (3) Parkinsonism Qualifiers: Parkinsonism type: Parkinson's disease Qualified Code(s): G20 - Parkinson' s disease Is this a current diagnosis for this admission?: Yes (4) 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 Is this a current diagnosis for this admission?: Yes (5) HTN (hypertension) Qualifiers: Hypertension type: essential hypertension Qualified Code(s): I10 - Essential (primary) hypertension Is this a current diagnosis for this admission?: Yes (6) Diabetes mellitus type 2, diet-controlled Is this a current diagnosis for this admission?: Yes (7) COPD (chronic obstructive pulmonary disease) Qualifiers: COPD type: unspecified COPD Qualified Code(s): J44.9 - Chronic obstructive pulmonary disease, unspecified Is this a current diagnosis for this admission?: Yes (8) GERD (gastroesophageal reflux disease) Qualifiers: Esophagitis presence: without esophagitis Qualified Code(s): K21.9 - Gastro -esophageal reflux disease without esophagitis Is this a current diagnosis for this admission?: Yes (9) Asthma Qualifiers: Asthma severity: mild Is this a current diagnosis for this admission?: Yes (10) Osteoarthritis involving multiple joints on both sides of body Is this a current diagnosis for this admission?: Yes (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 Is this a current diagnosis for this admission?: Yes - Time Time Spent with patient: 25-34 minutes Medications reviewed and adjusted accordingly: Yes Anticipated discharge: SNF Within: Other - Inpatient Certification Based on my medical assessment, after consideration of the patient's comorbidities, presenting symptoms, or acuity I expect that the services needed warrant INPATIENT care.: Yes I certify that my determination is in accordance with my understanding of Medicare's requirements for reasonable and necessary INPATIENT services [42 CFR 412.3e].: Yes Medical Necessity: Need Close Monitoring Due to Risk of Patient Decompensation, Need For IV Fluids, Need For Continuous Telemetry Monitoring, Risk of Complication if Not Cared For in Hospital Post Hospital Care: D/C or Transfer Summary - Plan Summary Plan Summary: Continue on all current medication management. Follow up on efforts to transfer to SNF for short term rehabilitation. Patient will remain on DNR status.
[2017-08-31] MEDS: ATORVASTATIN CALCIUM 10 MG TABLET PO SCH (21:35)
[2017-09-01] MEDS: LANSOPRAZOLE 30 MG TAB.RAP.DR PO SCH (05:13)
--- NOTE | 2017-09-01 08:31 | PDOC PROGRESS REPORT ---
Subjective Progress Note for:: 09/01/17 Subjective:: No chest pain or difficulty with breathing. No reported fever or chills. No abdominal pain, nausea, or vomiting. Awaiting SNF placement at selected [facility] facility. Assigned funeral planner / oncology social worker input appreciated. Reason For Visit: LEFT LOWER LOBE PNEUMONIA, SENILE DEBILITY, HTN, Physical Exam Vital Signs: Temp Pulse Resp BP Pulse Ox 98.9 F 71 20 161/58 H 99 09/01/17 07:31 09/01/17 07:31 09/01/17 07:31 09/01/17 07:31 09/01/17 07:31 Intake & Output 08/31/17 09/01/17 09/02/17 06:59 06:59 06:59 Intake Total 1453 2193 Balance 1453 2193 Weight 53.4 kg Physical Exam: General appearance: PRESENT: no acute distress, well-developed, well-nourished Head exam: PRESENT: atraumatic, normocephalic Mouth exam: PRESENT: moist Respiratory exam: PRESENT: clear to auscultation mary kate, decreased breath sounds - at lung bases Cardiovascular exam: PRESENT: RRR. ABSENT: diastolic murmur, rubs, systolic murmur Vascular exam: ABSENT: pallor GI/Abdominal exam: PRESENT: normal bowel sounds, soft. ABSENT: distended, guarding, mass, organomegaly, rebound, tenderness Extremities exam: ABSENT: pedal edema Musculoskeletal exam: PRESENT: deformity - related to multiple joint involvement with arthritis Neurological exam: PRESENT: alert, awake, oriented to person, oriented to place , oriented to time, oriented to situation, CN II-XII grossly intact. ABSENT: motor sensory deficit Psychiatric exam: PRESENT: appropriate affect, normal mood. Skin exam: PRESENT: dry, warm Results Laboratory Results: 08/29/17 05:36 08/29/17 05:36 Impressions: Chest X-Ray 08/28/17 12:11 IMPRESSION: Left basilar airspace disease atelectasis versus pneumonia Assessment & Plan - Diagnosis (1) Left lower lobe pneumonia Qualifiers: Aspiration pneumonia type: unspecified Is this a current diagnosis for this admission?: Yes (2) Senile debility Is this a current diagnosis for this admission?: Yes (3) Parkinsonism Qualifiers: Parkinsonism type: Parkinson's disease Qualified Code(s): G20 - Parkinson' s disease Is this a current diagnosis for this admission?: Yes (4) 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 Is this a current diagnosis for this admission?: Yes (5) HTN (hypertension) Qualifiers: Hypertension type: essential hypertension Qualified Code(s): I10 - Essential (primary) hypertension Is this a current diagnosis for this admission?: Yes (6) Diabetes mellitus type 2, diet-controlled Is this a current diagnosis for this admission?: Yes (7) COPD (chronic obstructive pulmonary disease) Qualifiers: COPD type: unspecified COPD Qualified Code(s): J44.9 - Chronic obstructive pulmonary disease, unspecified Is this a current diagnosis for this admission?: Yes (8) GERD (gastroesophageal reflux disease) Qualifiers: Esophagitis presence: without esophagitis Qualified Code(s): K21.9 - Gastro -esophageal reflux disease without esophagitis Is this a current diagnosis for this admission?: Yes (9) Asthma Qualifiers: Asthma severity: mild Is this a current diagnosis for this admission?: Yes (10) Osteoarthritis involving multiple joints on both sides of body Is this a current diagnosis for this admission?: Yes (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 Is this a current diagnosis for this admission?: Yes - Time Time Spent with patient: 25-34 minutes Medications reviewed and adjusted accordingly: Yes Anticipated discharge: SNF - for short term rehabilitation Within: Other - Inpatient Certification Based on my medical assessment, after consideration of the patient's comorbidities, presenting symptoms, or acuity I expect that the services needed warrant INPATIENT care.: Yes I certify that my determination is in accordance with my understanding of Medicare's requirements for reasonable and necessary INPATIENT services [42 CFR 412.3e].: Yes Medical Necessity: Need Close Monitoring Due to Risk of Patient Decompensation, Need For Continuous Telemetry Monitoring, Risk of Complication if Not Cared For in Hospital Post Hospital Care: D/C or Transfer Summary - Plan Summary Plan Summary: Continue current medication management. Follow up on efforts at placement for rehabilitation.
[2017-09-01] MEDS: CARBIDOPA PO SCH ×2 (11:13→12:13)
[2017-09-01] MEDS: ENOXAPARIN SODIUM INJ 40 MG/0.4 ML DISP.SYRIN SUBCUT SCH (11:13)
[2017-09-01] MEDS: LEVODOPA PO SCH ×2 (11:13→12:13)
[2017-09-01] MEDS: FLUTICASONE NASAL SPRAY 50 MCG/SPRY 120 SPRAY/16 GM NASL SCH (11:20)
[2017-09-01] MEDS: CYCLOSPORINE 0.05% OPH EMULSIO 0.4 ML DROPERETTE OU SCH ×2 (11:20→17:24)
[2017-09-01] MEDS: RALOXIFENE HCL 60 MG TABLET PO SCH (11:20)
[2017-09-01] MEDS: CALCIUM CARBONATE 250 MG/VITAMIN D3 125 UNIT TABLET PO SCH (11:21)
[2017-09-01] MEDS: ASPIRIN 81 MG TABLET, CHEWABLE PO SCH (11:21)
[2017-09-01] MEDS: LEVOFLOXACIN 500 MG TABLET PO SCH (11:21)
[2017-09-01] MEDS: MULTIVITAMIN TABLET PO SCH (11:21)
[2017-09-01] MEDS: CARBIDOPA/LEVODOPA 25-100 MG TABLET PO SCH ×3 (11:22→16:03)
[2017-09-01] MEDS: FLUDROCORTISONE ACETATE 0.1 MG TABLET PO SCH (11:22)
[2017-09-01] MEDS: FLUTICASONE/SALMETEROL DISKUS 250-50 MCG/DOSE IH SCH ×2 (11:22→22:24)
[2017-09-01] MEDS: ATORVASTATIN CALCIUM 10 MG TABLET PO SCH (22:24)
[2017-09-02] MEDS: ACETAMINOPHEN 325 MG TABLET PO PRN (02:41)
[2017-09-02] MEDS: LEVODOPA PO SCH ×2 (07:01→10:49)
[2017-09-02] MEDS: CARBIDOPA PO SCH ×2 (07:01→10:49)
[2017-09-02] MEDS: CARBIDOPA/LEVODOPA 25-100 MG TABLET PO SCH ×3 (07:01→16:13)
[2017-09-02] MEDS: LANSOPRAZOLE 30 MG TAB.RAP.DR PO SCH (07:01)
[2017-09-02] MEDS: FLUDROCORTISONE ACETATE 0.1 MG TABLET PO SCH (09:48)
[2017-09-02] MEDS: ASPIRIN 81 MG TABLET, CHEWABLE PO SCH (09:48)
[2017-09-02] MEDS: RALOXIFENE HCL 60 MG TABLET PO SCH (09:48)
[2017-09-02] MEDS: LEVOFLOXACIN 500 MG TABLET PO SCH (09:49)
[2017-09-02] MEDS: CALCIUM CARBONATE 250 MG/VITAMIN D3 125 UNIT TABLET PO SCH (09:49)
[2017-09-02] MEDS: MULTIVITAMIN TABLET PO SCH (09:50)
[2017-09-02] MEDS: FLUTICASONE/SALMETEROL DISKUS 250-50 MCG/DOSE IH SCH ×2 (09:50→22:17)
[2017-09-02] MEDS: CYCLOSPORINE 0.05% OPH EMULSIO 0.4 ML DROPERETTE OU SCH ×2 (09:50→21:18)
[2017-09-02] MEDS: FLUTICASONE NASAL SPRAY 50 MCG/SPRY 120 SPRAY/16 GM NASL SCH (09:50)
[2017-09-02] MEDS: ENOXAPARIN SODIUM INJ 40 MG/0.4 ML DISP.SYRIN SUBCUT SCH (09:51)
--- NOTE | 2017-09-02 12:28 | PDOC PROGRESS REPORT ---
Subjective Progress Note for:: 09/02/17 Subjective:: Patient is seen by the bedside, admitted for pneumonia Reason For Visit: LEFT LOWER LOBE PNEUMONIA, SENILE DEBILITY, HTN, Physical Exam Vital Signs: Temp Pulse Resp BP Pulse Ox 98.3 F 81 16 168/65 H 100 09/02/17 08:17 09/02/17 08:17 09/02/17 08:17 09/02/17 08:17 09/02/17 08:17 Intake & Output 09/01/17 09/02/17 09/03/17 06:59 06:59 06:59 Intake Total 2193 7 200 Balance 2193 2097 200 Weight 53.4 kg General appearance: PRESENT: no acute distress Eye exam: PRESENT: PERRLA Respiratory exam: PRESENT: clear to auscultation mary kate Cardiovascular exam: PRESENT: +S1, +S2 Neurological exam: PRESENT: alert Results Laboratory Results: 08/29/17 05:36 08/29/17 05:36 Impressions: Chest X-Ray 08/28/17 12:11 IMPRESSION: Left basilar airspace disease atelectasis versus pneumonia Assessment & Plan - Diagnosis (1) Left lower lobe pneumonia Qualifiers: Aspiration pneumonia type: unspecified Is this a current diagnosis for this admission?: Yes (2) Parkinsonism Qualifiers: Parkinsonism type: Parkinson's disease Qualified Code(s): G20 - Parkinson' s disease Is this a current diagnosis for this admission?: Yes - Plan Summary Plan Summary: Continue treatment
[2017-09-02] MEDS ORDERED: DIPHENHYDRAMINE HCL 25 MG CAPSULE PO PRN ×2 (15:30→16:11)
[2017-09-02] MEDS: ATORVASTATIN CALCIUM 10 MG TABLET PO SCH (22:17)
[2017-09-03] MEDS: ACETAMINOPHEN 325 MG TABLET PO PRN (05:35)
[2017-09-03] MEDS: LANSOPRAZOLE 30 MG TAB.RAP.DR PO SCH (05:35)
[2017-09-03] MEDS: LEVODOPA PO SCH ×2 (07:59→10:42)
[2017-09-03] MEDS: CARBIDOPA PO SCH ×2 (07:59→10:42)
[2017-09-03] MEDS: CARBIDOPA/LEVODOPA 25-100 MG TABLET PO SCH ×3 (08:00→16:38)
[2017-09-03] MEDS: ASPIRIN 81 MG TABLET, CHEWABLE PO SCH (10:38)
[2017-09-03] MEDS: FLUDROCORTISONE ACETATE 0.1 MG TABLET PO SCH (10:39)
[2017-09-03] MEDS: LEVOFLOXACIN 500 MG TABLET PO SCH (10:39)
[2017-09-03] MEDS: CALCIUM CARBONATE 250 MG/VITAMIN D3 125 UNIT TABLET PO SCH (10:39)
[2017-09-03] MEDS: MULTIVITAMIN TABLET PO SCH (10:39)
[2017-09-03] MEDS: ENOXAPARIN SODIUM INJ 40 MG/0.4 ML DISP.SYRIN SUBCUT SCH (10:40)
[2017-09-03] MEDS: RALOXIFENE HCL 60 MG TABLET PO SCH (10:40)
[2017-09-03] MEDS: FLUTICASONE NASAL SPRAY 50 MCG/SPRY 120 SPRAY/16 GM NASL SCH (10:42)
[2017-09-03] MEDS: FLUTICASONE/SALMETEROL DISKUS 250-50 MCG/DOSE IH SCH ×2 (10:42→22:47)
[2017-09-03] MEDS: CYCLOSPORINE 0.05% OPH EMULSIO 0.4 ML DROPERETTE OU SCH ×2 (10:44→18:07)
--- NOTE | 2017-09-03 12:46 | PDOC PROGRESS REPORT ---
Subjective Progress Note for:: 09/03/17 Subjective:: Patient is seen by the bedside, admitted for pneumonia Reason For Visit: LEFT LOWER LOBE PNEUMONIA, SENILE DEBILITY, HTN, Physical Exam Vital Signs: Temp Pulse Resp BP Pulse Ox 97.5 F 81 16 91/40 L 100 09/03/17 11:19 09/03/17 11:19 09/03/17 11:19 09/03/17 11:19 09/03/17 11:19 Intake & Output 09/02/17 09/03/17 09/04/17 06:59 06:59 06:59 Intake Total 2096 92 Balance 2096 92 Weight 53.4 kg 53.4 kg General appearance: PRESENT: no acute distress Eye exam: PRESENT: PERRLA Respiratory exam: PRESENT: clear to auscultation mary kate Cardiovascular exam: PRESENT: +S1, +S2 GI/Abdominal exam: PRESENT: soft Neurological exam: PRESENT: alert Results Laboratory Results: 08/29/17 05:36 08/29/17 05:36 Impressions: Chest X-Ray 08/28/17 12:11 IMPRESSION: Left basilar airspace disease atelectasis versus pneumonia Assessment & Plan - Diagnosis (1) Left lower lobe pneumonia Qualifiers: Aspiration pneumonia type: unspecified Is this a current diagnosis for this admission?: Yes (2) Parkinsonism Qualifiers: Parkinsonism type: Parkinson's disease Qualified Code(s): G20 - Parkinson' s disease Is this a current diagnosis for this admission?: Yes
[2017-09-03] MEDS: ATORVASTATIN CALCIUM 10 MG TABLET PO SCH (22:47)
[2017-09-04] MEDS: ACETAMINOPHEN 325 MG TABLET PO PRN ×2 (02:48→20:37)
[2017-09-04] MEDS: CARBIDOPA/LEVODOPA 25-100 MG TABLET PO SCH ×3 (07:03→15:50)
[2017-09-04] MEDS: CARBIDOPA PO SCH ×2 (07:04→11:02)
[2017-09-04] MEDS: LANSOPRAZOLE 30 MG TAB.RAP.DR PO SCH (07:04)
[2017-09-04] MEDS: LEVODOPA PO SCH ×2 (07:04→11:02)
[2017-09-04 09:48] LABS: ABSOLUTE EOSINOPHILS # (AUTO) 0.1 10^3/uL (0.0-0.6); ABSOLUTE LYMPHOCYTES (AUTO) 1.1 10^3/uL (0.5-4.7); ABSOLUTE MONOCYTES (AUTO) 0.3 10^3/uL (0.1-1.4); ABSOLUTE NEUT (AUTO) 3.3 10^3/uL (1.7-8.2); BASOPHILS % (AUTO) 0.1 % (0-2); EOSINOPHILS % (AUTO) 2.7 % (0-6); HEMATOCRIT 32.9 % (36.0-47.0); LYMPHOCYTES % (AUTO) 23.5 % (13-45); MEAN CORPUSCULAR HGB CONC 33.4 g/dL (32.0-36.0); MEAN CORPUSCULAR VOLUME 90 fl (80-97); MONOCYTES % (AUTO) 6.6 % (3-13); PLATELET COUNT 160 10^3/uL (150-450); RED BLOOD COUNT 3.67 10^6/uL (3.72-5.28); RED CELL DISTRIBUTION WIDTH 14.1 % (11.5-14.0); SEGMENTED NEUTROPHILS % (AUTO) 67.1 % (42-78); TOTAL CELLS COUNTED % (AUTO) 100 %; WHITE BLOOD COUNT 4.9 10^3/uL (4.0-10.5)
[2017-09-04] MEDS: ASPIRIN 81 MG TABLET, CHEWABLE PO SCH (09:51)
[2017-09-04] MEDS: LEVOFLOXACIN 500 MG TABLET PO SCH (09:51)
[2017-09-04] MEDS: CALCIUM CARBONATE 250 MG/VITAMIN D3 125 UNIT TABLET PO SCH (09:52)
[2017-09-04] MEDS: RALOXIFENE HCL 60 MG TABLET PO SCH (09:52)
[2017-09-04] MEDS: ENOXAPARIN SODIUM INJ 40 MG/0.4 ML DISP.SYRIN SUBCUT SCH (09:53)
[2017-09-04] MEDS: MULTIVITAMIN TABLET PO SCH (09:53)
[2017-09-04] MEDS: FLUDROCORTISONE ACETATE 0.1 MG TABLET PO SCH (09:55)
[2017-09-04] MEDS: FLUTICASONE/SALMETEROL DISKUS 250-50 MCG/DOSE IH SCH ×2 (09:56→20:44)
[2017-09-04] MEDS: FLUTICASONE NASAL SPRAY 50 MCG/SPRY 120 SPRAY/16 GM NASL SCH (09:56)
[2017-09-04] MEDS: CYCLOSPORINE 0.05% OPH EMULSIO 0.4 ML DROPERETTE OU SCH ×2 (09:57→18:01)
[2017-09-04 10:31] LABS: ALANINE AMINOTRANSFERASE 12 U/L (9-52); ALKALINE PHOSPHATASE 43 U/L (38-126); ANION GAP 9 (5-19); ASPARTATE AMINO TRANSFERASE 22 U/L (14-36); BILIRUBIN,DIRECT 0.4 mg/dL (0.0-0.4); BILIRUBIN,TOTAL 0.4 mg/dL (0.2-1.3); BLOOD UREA NITROGEN 14 mg/dL (7-20); CALCIUM 8.6 mg/dL (8.4-10.2); CARBON DIOXIDE 34 mmol/L (22-30); CHLORIDE 101 mmol/L (98-107); GLUCOSE 120 mg/dL (75-110); POTASSIUM 3.1 mmol/L (3.6-5.0); SODIUM 144.4 mmol/L (137-145); TOTAL PROTEIN 5.2 g/dL (6.3-8.2)
--- NOTE | 2017-09-04 18:34 | PDOC PROGRESS REPORT ---
Subjective Progress Note for:: 09/04/17 Subjective:: Patient continue to participate in physical therapy with 2 person assist. Breathing is better. No chest pain. No nausea, vomiting or abdominal pain. No fever or chills. Awaiting bed offer from [facility] in [place]. Reason For Visit: LEFT LOWER LOBE PNEUMONIA, SENILE DEBILITY, HTN, Physical Exam Vital Signs: Temp Pulse Resp BP Pulse Ox 98.0 F 86 14 177/80 H 100 09/04/17 16:29 09/04/17 16:29 09/04/17 16:29 09/04/17 16:29 09/04/17 16:29 Intake & Output 09/03/17 09/04/17 09/05/17 06:59 06:59 06:59 Intake Total 928 720 220 Balance 928 720 220 Weight 53.4 kg 52.7 kg Physical Exam: General appearance: PRESENT: no acute distress, well-developed, well-nourished Head exam: PRESENT: atraumatic, normocephalic Mouth exam: PRESENT: moist Respiratory exam: PRESENT: clear to auscultation mary kate, decreased breath sounds - at lung bases Cardiovascular exam: PRESENT: RRR. ABSENT: diastolic murmur, rubs, systolic murmur Vascular exam: ABSENT: pallor GI/Abdominal exam: PRESENT: normal bowel sounds, soft. ABSENT: distended, guarding, mass, organomegaly, rebound, tenderness Extremities exam: ABSENT: pedal edema Musculoskeletal exam: PRESENT: deformity - related to multiple joint involvement with arthritis Neurological exam: PRESENT: alert, awake, oriented to person, oriented to place , oriented to time, oriented to situation, CN II-XII grossly intact. ABSENT: motor sensory deficit Psychiatric exam: PRESENT: appropriate affect, normal mood. Skin exam: PRESENT: dry, warm Results Laboratory Results: 09/04/17 09:22 09/04/17 09:22 09/04/17 09/04/17 09:22 09:22 WBC 4.9 RBC 3.67 L Hgb 11.0 L Hct 32.9 L MCV 90 MCH 30.0 MCHC 33.4 RDW 14.1 H Plt Count 160 Seg Neutrophils % 67.1 Lymphocytes % 23.5 Monocytes % 6.6 Eosinophils % 2.7 Basophils % 0.1 Absolute Neutrophils 3.3 Absolute Lymphocytes 1.1 Absolute Monocytes 0.3 Absolute Eosinophils 0.1 Absolute Basophils 0.0 Sodium 144.4 Potassium 3.1 L Chloride 101 Carbon Dioxide 34 H Anion Gap 9 BUN 14 Creatinine 0.45 L Est GFR ( Amer) > 60 Est GFR (Non-Af Amer) > 60 Glucose 120 H Calcium 8.6 Total Bilirubin 0.4 AST 22 ALT 12 Alkaline Phosphatase 43 Total Protein 5.2 L Albumin 3.0 L Impressions: Chest X-Ray 08/28/17 12:11 IMPRESSION: Left basilar airspace disease atelectasis versus pneumonia Assessment & Plan - Diagnosis (1) Left lower lobe pneumonia Qualifiers: Aspiration pneumonia type: unspecified Is this a current diagnosis for this admission?: Yes Plan: See admitting attending physician orders. (2) Senile debility Is this a current diagnosis for this admission?: Yes Plan: See admitting attending physician orders. (3) Parkinsonism Qualifiers: Parkinsonism type: Parkinson's disease Qualified Code(s): G20 - Parkinson' s disease Is this a current diagnosis for this admission?: Yes Plan: See admitting attending physician orders. 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 (6) Diabetes mellitus type 2, diet-controlled Is this a current diagnosis for this admission?: Yes Plan: See admitting attending physician orders. (7) COPD (chronic obstructive pulmonary disease) Qualifiers: COPD type: unspecified COPD Qualified Code(s): J44.9 - Chronic obstructive pulmonary disease, unspecified Is this a current diagnosis for this admission?: Yes Plan: See admitting attending physician orders. (8) GERD (gastroesophageal reflux disease) Qualifiers: Esophagitis presence: without esophagitis Qualified Code(s): K21.9 - Gastro -esophageal reflux disease without esophagitis Is this a current diagnosis for this admission?: Yes Plan: See admitting attending physician orders. (9) Asthma Qualifiers: Asthma severity: mild Is this a current diagnosis for this admission?: Yes Plan: See admitting attending physician orders. (10) Osteoarthritis involving multiple joints on both sides of body Is this a current diagnosis for this admission?: Yes Plan: See admitting attending physician orders. 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 (12) Hypokalemia due to inadequate potassium intake Is this a current diagnosis for this admission?: Yes Plan: Potassium replacement therapy will be done. Obtain Mag level. Repeat BMP in AM. - Time Time Spent with patient: 25-34 minutes - Inpatient Certification Based on my medical assessment, after consideration of the patient's comorbidities, presenting symptoms, or acuity I expect that the services needed warrant INPATIENT care.: Yes I certify that my determination is in accordance with my understanding of Medicare's requirements for reasonable and necessary INPATIENT services [42 CFR 412.3e].: Yes Medical Necessity: Need Close Monitoring Due to Risk of Patient Decompensation, Need For IV Fluids, Need For Continuous Telemetry Monitoring, Risk of Complication if Not Cared For in Hospital Post Hospital Care: D/C or Transfer Summary - Plan Summary Plan Summary: Potassium replacement in progress. Obtain Mg level. Repeat BMP in AM.
[2017-09-04] MEDS: POTASSIUM CHLORIDE 10 MEQ TABLET.SA PO SCH (20:37)
[2017-09-04] MEDS: ATORVASTATIN CALCIUM 10 MG TABLET PO SCH (20:43)
[2017-09-05] MEDS: ACETAMINOPHEN 325 MG TABLET PO PRN ×2 (00:17→06:46)
[2017-09-05] MEDS: POTASSIUM CHLORIDE 10 MEQ TABLET.SA PO SCH (00:21)
[2017-09-05] MEDS: CARBIDOPA/LEVODOPA 25-100 MG TABLET PO SCH ×2 (06:46→11:00)
[2017-09-05] MEDS: CARBIDOPA PO SCH ×2 (06:46→11:01)
[2017-09-05] MEDS: LANSOPRAZOLE 30 MG TAB.RAP.DR PO SCH (06:46)
[2017-09-05] MEDS: LEVODOPA PO SCH ×2 (06:46→11:01)
[2017-09-05 07:32] LABS: ANION GAP 8 (5-19); BLOOD UREA NITROGEN 12 mg/dL (7-20); CALCIUM 8.9 mg/dL (8.4-10.2); CARBON DIOXIDE 31 mmol/L (22-30); CHLORIDE 107 mmol/L (98-107); GLUCOSE 79 mg/dL (75-110)
[2017-09-05 07:46] LABS: POTASSIUM 4.5 mmol/L (3.6-5.0)
[2017-09-05] MEDS ORDERED: LOSARTAN POTASSIUM 25 MG TABLET PO ONE (08:19)
--- NOTE | 2017-09-05 08:47 | PDOC TRANSFER SUMMARY ---
General - Admit/Disc Date/PCP Admission Date/Primary Care Provider: 08/28/17 13:47 ERIKA DUMONT Discharge Date: 09/05/17 - Discharge Diagnosis (1) Left lower lobe pneumonia Is this a current diagnosis for this admission?: Yes Summary: Improved. (2) Senile debility Is this a current diagnosis for this admission?: Yes Summary: Improving. Patient will be transferred to SNF for short term rehabilitation. (3) Parkinsonism Is this a current diagnosis for this admission?: Yes Summary: Stable on current medication management. 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 In need for antihypertensive medication presently. (5) HTN (hypertension) Is this a current diagnosis for this admission?: Yes Summary: Improving. She was restarted on Losartan 25 mg po daily. (6) Diabetes mellitus type 2, diet-controlled Is this a current diagnosis for this admission?: Yes Summary: Maintain on current medication management. (7) COPD (chronic obstructive pulmonary disease) Is this a current diagnosis for this admission?: Yes Summary: Maintain on current medication management. (8) GERD (gastroesophageal reflux disease) Is this a current diagnosis for this admission?: Yes Summary: Maintain on current medication management. (9) Asthma Is this a current diagnosis for this admission?: Yes Summary: Maintain on current medication management. (10) Osteoarthritis involving multiple joints on both sides of body Is this a current diagnosis for this admission?: Yes Summary: Maintain on current medication management. (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 Is this a current diagnosis for this admission?: Yes Summary: Maintain on current medication management. (12) Hypokalemia due to inadequate potassium intake Is this a current diagnosis for this admission?: Yes Summary: Resolved. - Additional Information Resuscitation Status: Do Not Resuscitate Prescriptions: Losartan Potassium 25 mg PO DAILY #30 tablet Home Medications: Albuterol Sulfate [Albuterol Sulfate 2.5mg/3 mL] 1 vial IH RTTIDP PRN 08/28/17 Albuterol Sulfate [Ventolin Hfa] 2 puff IH Q4HP PRN 08/28/17 Aspirin [Aspirin 81 mg Chewable Tablet] 81 mg PO Q6AM 08/28/17 Calcium Carbonate/Vitamin D3 [Calcium 600 + Vit D Tablet] 1 tab PO DAILY@1600 Carbidopa/Levodopa [Sinemet Cr 25-100 Tablet] 1 tab PO ACLUNCH 08/28/17 Carbidopa/Levodopa [Sinemet Cr 25-100 Tablet] 1 tab PO QAM 08/28/17 Carbidopa/Levodopa [Sinemet Cr 25-100 Tablet] 2 tab PO DAILY@1600 08/28/17 Cyclosporine [Restasis] 1 drop OU BID 08/28/17 Diclofenac Epolamine [Flector] 1 each TD Q12HP PRN 08/28/17 Fluticasone Propionate [Flonase Nasal [place] 50 Mcg/[place] 16 gm] 2 sprays NASL DAILY 08/28/17 Fluticasone/Salmeterol [Advair 250-50 Diskus 28 dose] 1 inh IH Q12 08/28/17 Multivit-Min/Iron/Folic/Lutein [Centrum Silver Women Tablet] 1 each PO DAILY@ 1600 08/28/17 Omeprazole 20 mg PO Q6AM 08/28/17 Raloxifene HCl [Evista 60 mg Tablet] 60 mg PO Q6AM 08/28/17 Rasagiline Mesylate [Azilect 1 mg Tablet] 1 mg PO QAM 08/28/17 Rosuvastatin Calcium [Crestor 5 mg Tablet] 5 mg PO DAILY@1600 08/28/17 Carbidopa/Levodopa [Sinemet 25-100 mg Tablet] 1 each PO ACLUNCH 08/29/17 Carbidopa/Levodopa [Sinemet 25-100 mg Tablet] 1 each PO DAILY@1600 08/29/17 Carbidopa/Levodopa [Sinemet 25-100 mg Tablet] 1 each PO QAM 08/29/17 Multivit-Min/Iron/Folic/Ktq076 [Hair, Skin and Nails Tablet] 3 each PO DAILY 03/06 [place]-3 Acid Ethyl Esters [Lovaza 1 gm Capsule] 1 gm PO DAILY 08/29/17 Levofloxacin [Levaquin 500 mg Tablet] 500 mg PO DAILY #3 tablet 09/05/17 Losartan Potassium 25 mg PO DAILY #30 tablet 09/05/17 History of Present Illness Admission Date/PCP: 08/28/17 13:47 ERIKA OSUNKOYA History of Present Illness: JASON SWEET is a 87 year old female known to my practice who presented to the ED with complain of generalized weakness, productive cough and chest congestion for 2 weeks duration. She described sputum as greenish and mucoid in character. She reported difficulty with expectoration and associated nausea. There is associated chest pain with coughing. She denied palpitation. No abdominal pain. She reported nausea but no vomiting. She described her generalized weakness as severe and to the point that she was not able to stand on her feet. There is associated loss of appetite and po intake. She denied any diarrhea. No recent fall she ambulate with walker assistance when ambulatory. Her morbidities include Parkinsonism, hypotension secondary to her Parkinsonism medication, Hypertension, Diabetes Mellitus Type 2, Asthma, COPD, GERD, [place] hernia, and osteoarthritis. Her initial evaluation in the ED was significant for abnormal chest X ray findings suggestive if possible left lower lobe pneumonia and elevated blood pressure related to Florinef usage. Hospital Course Hospital Course: She was managed with IV Levofloxacin and eventually transition to oral route. She remain afebrile and breathing has improved. She is tolerating oral feeding very well. Her stay was further significant for associated debility. She participated in physical therapy and agreeable to short term rehabilitation at [facility] in [place], [place]. She has remain on all of her Parkinson's disease medication while on admission. She was taken off Fludrocortisone therapy for Parkinson's disease associated symptomatic hypotension. She was restarted on low dose Losartan at 25 mg po daily due to elevated blood pressure. She remain on all other preadmission medication. She is agreeable to transfer to SNF today. She remain on DNR status. She will follow up in the office upon discharge from the SNF. Facility staff should call office at [phone] for follow up appointment before discharge. Physical Exam Vital Signs: Temp Pulse Resp BP Pulse Ox 97.6 F 81 18 161/62 H 97 09/05/17 03:26 09/05/17 07:00 09/05/17 03:26 09/05/17 03:26 09/05/17 03:26 Intake & Output 09/04/17 09/05/17 09/06/17 06:59 06:59 06:59 Intake Total 720 453 Balance 720 453 Weight 52.7 kg 52.7 kg General appearance: PRESENT: no acute distress, well-developed, well-nourished Head exam: PRESENT: atraumatic, normocephalic Mouth exam: PRESENT: moist Respiratory exam: PRESENT: clear to auscultation mary kate, decreased breath sounds - at lung bases Cardiovascular exam: PRESENT: RRR. ABSENT: diastolic murmur, rubs, systolic murmur Vascular exam: ABSENT: pallor GI/Abdominal exam: PRESENT: normal bowel sounds, soft. ABSENT: distended, guarding, mass, organomegaly, rebound, tenderness Extremities exam: ABSENT: pedal edema Musculoskeletal exam: PRESENT: deformity - related to multiple joint involvement with arthritis Neurological exam: PRESENT: alert, awake, oriented to person, oriented to place , oriented to time, oriented to situation, CN II-XII grossly intact. ABSENT: motor sensory deficit Psychiatric exam: PRESENT: appropriate affect, normal mood. Skin exam: PRESENT: dry, warm Results Laboratory Results: 09/04/17 09:22 09/05/17 06:00 09/04/17 09/04/17 09/04/17 09:22 09:22 09:22 WBC 4.9 RBC 3.67 L Hgb 11.0 L Hct 32.9 L MCV 90 MCH 30.0 MCHC 33.4 RDW 14.1 H Plt Count 160 Seg Neutrophils % 67.1 Lymphocytes % 23.5 Monocytes % 6.6 Eosinophils % 2.7 Basophils % 0.1 Absolute Neutrophils 3.3 Absolute Lymphocytes 1.1 Absolute Monocytes 0.3 Absolute Eosinophils 0.1 Absolute Basophils 0.0 Sodium 144.4 Potassium 3.1 L Chloride 101 Carbon Dioxide 34 H Anion Gap 9 BUN 14 Creatinine 0.45 L Est GFR ( Amer) > 60 Est GFR (Non-Af Amer) > 60 Glucose 120 H Calcium 8.6 Magnesium 1.7 Total Bilirubin 0.4 AST 22 ALT 12 Alkaline Phosphatase 43 Total Protein 5.2 L Albumin 3.0 L 09/05/17 06:00 WBC RBC Hgb Hct MCV MCH MCHC RDW Plt Count Seg Neutrophils % Lymphocytes % Monocytes % Eosinophils % Basophils % Absolute Neutrophils Absolute Lymphocytes Absolute Monocytes Absolute Eosinophils Absolute Basophils Sodium 146.0 H Potassium 4.5 D Chloride 107 Carbon Dioxide 31 H Anion Gap 8 BUN 12 Creatinine 0.43 L Est GFR ( Amer) > 60 Est GFR (Non-Af Amer) > 60 Glucose 79 Calcium 8.9 Magnesium Total Bilirubin AST ALT Alkaline Phosphatase Total Protein Albumin Impressions: Chest X-Ray 08/28/17 12:11 IMPRESSION: Left basilar airspace disease atelectasis versus pneumonia Transfer Plan - Disposition Transfer Plan: Transfer to SNF for short term rehabilitation. Qualifiers - * PATIENT BEING DISCHARGED WITH ANY OF THE FOLLOWING DIAGNOSIS: No Plan Discharge Plan: Transfer to SNF for short term rehabilitation.
[2017-09-05] MEDS: ASPIRIN 81 MG TABLET, CHEWABLE PO SCH (10:53)
[2017-09-05] MEDS: CALCIUM CARBONATE 250 MG/VITAMIN D3 125 UNIT TABLET PO SCH (10:54)
[2017-09-05] MEDS: RALOXIFENE HCL 60 MG TABLET PO SCH (10:54)
[2017-09-05] MEDS: MULTIVITAMIN TABLET PO SCH (10:55)
[2017-09-05] MEDS: ENOXAPARIN SODIUM INJ 40 MG/0.4 ML DISP.SYRIN SUBCUT SCH (10:56)
[2017-09-05] MEDS: FLUTICASONE NASAL SPRAY 50 MCG/SPRY 120 SPRAY/16 GM NASL SCH (10:57)
[2017-09-05] MEDS: FLUTICASONE/SALMETEROL DISKUS 250-50 MCG/DOSE IH SCH (10:58)
[2017-09-05] MEDS: FLUDROCORTISONE ACETATE 0.1 MG TABLET PO SCH (10:58)
[2017-09-05] MEDS: CYCLOSPORINE 0.05% OPH EMULSIO 0.4 ML DROPERETTE OU SCH (11:00)
[2017-09-05 12:38] VITALS: BP 135/55
== END 2017-09-05 12:52 | DRG 194 ==
LOC: ER 10:16 → EH 13:47 → 4S 15:35
PROVIDERS: ADMIT Internal Medicine Geriatric Medicine; ATTEND Internal Medicine Geriatric Medicine
PROC: 3E0F73Z Introduction of Anti-inflammatory into Respiratory Tract, Via Natural or Artificial Opening (ICD-10-PCS; principal; 2017-08-29)
DX: J18.1 Lobar pneumonia, unspecified organism (principal); G90.3 Multi-system degeneration of the autonomic nervous system; I10 Essential (primary) hypertension; G20 Parkinson's disease; R54 Age-related physical debility; J44.9 Chronic obstructive pulmonary disease, unspecified; K21.9 Gastro-esophageal reflux disease without esophagitis; M15.3 Secondary multiple arthritis; M81.0 Age-related osteoporosis without current pathological fracture; E87.6 Hypokalemia; K44.9 Diaphragmatic hernia without obstruction or gangrene; D64.9 Anemia, unspecified; E78.00 Pure hypercholesterolemia, unspecified; E11.51 Type 2 diabetes mellitus with diabetic peripheral angiopathy without gangrene; I45.81 Long QT syndrome; Z79.899 Other long term (current) drug therapy; Z90.49 Acquired absence of other specified parts of digestive tract; Z87.891 Personal history of nicotine dependence; Z79.82 Long term (current) use of aspirin; Z88.8 Allergy status to other drugs, medicaments and biological substances
CPT/HCPCS: 36415; 51701; 71045; 71046; 80048; 80053; 81001; 82550; 82962; 83735; 84484; 85025; 85610; 85730; 87040; 87493; 93005; 93010; 94640; 94799; 96374; 99285; G8978-GP; G8979-GP; J1650; J1956; J3490; J7030; J7614; J7620